=== PATIENT | male | born 1960 | race Caucasian/White ===

== ENCOUNTER 2021-09-04 20:41 | Inpatient (IN) ==
[2021-09-04 22:27] LABS: PCO2 Arterial 71 mmHg (35-45); PO2 Arterial 83 mmHg (80-100)
[2021-09-04 22:42] LABS: ABS Basophils 0.1 10^3/ul (0-0.2); ABS Eosinophils 0.1 10^3/ul (0-0.6); ABS Lymphocytes 4.5 10^3/ul (1.0-4.8); ABS Neutrophils 10.6 10^3/ul (1.5-7.7); Eosinophil % 0.9 %; Hematocrit 41 % (42-52); Hemoglobin 13.3 g/dL (14.0-18.0); Lymphocyte % 27.6 %; Mean Corpuscular HGB Conc 32 g/dL (31-36); Mean Corpuscular Hemoglobin 28 pg (27-31); Mean Corpuscular Volume 87 fL (80-94); Mean Platelet Volume 7.6 fL (7.4-10.4); Nucleated Red Blood Cells % 0.1; Platelet Count 366 10^3/uL (150-450); Red Blood Count 4.74 10^6 /uL (4.18-5.48); Red Cell Distribution Width 15 % (10-15); White Blood Count 16.3 10^3/uL (3.5-10.8)
[2021-09-04 22:45] LABS: Urine Appearance Clear; Urine Bilirubin Negative (Negative); Urine Blood Negative (Negative); Urine Color Yellow; Urine Glucose Negative (Negative); Urine Ketones Trace (Negative); Urine Nitrite Negative (Negative); Urine Protein 1+(30 mg/dL) (Negative); Urine Specific Gravity 1.021 (1.002-1.030); Urine Urobilinogen Negative (Negative)
[2021-09-04 22:48] LABS: Rapid COVID-19 Molecular Undetected (Undetected)
[2021-09-04 22:50] LABS: Urine Bacteria Absent (Absent); Urine Red Blood Cell 3+(>10/hpf) (Absent); Urine White Blood Cell Trace(0-5/hpf) (Absent)
[2021-09-04 23:00] LABS: Albumin 4.2 g/dL (3.2-5.2); Albumin/Globulin Ratio 1.4 (1-3); Calcium 9.8 mg/dL (8.6-10.3); Globulin 2.9 g/dL (2-4); Potassium 4.1 mmol/L (3.5-5.0); Total Bilirubin 0.4 mg/dL (0.2-1.0); Total Protein 7.1 g/dL (6.4-8.9)
[2021-09-04 23:02] LABS: Troponin I 0.01 ng/mL (<0.03)
[2021-09-05] MEDS ORDERED: NS 0.9% 1000 ml BAG 1,000 ML IV SCH (00:30)
[2021-09-05] MEDS ORDERED: Miconazole TOPICAL CREAM 2% 30 GM TOPICAL PRN (01:40)
[2021-09-05] MEDS: Heparin 5000 UNITS/ML 1 mL VIAL SUBCUT SCH ×3 (10:06→22:34)
[2021-09-05] MEDS: Senna TAB 8.6 mg TAB PO SCH ×2 (10:08→20:36)
[2021-09-05] MEDS: Vitamin THERAPEUTIC TAB PO SCH (10:08)
[2021-09-05 11:34] LABS: ABS Basophils 0.1 10^3/ul (0-0.2); ABS Eosinophils 0.1 10^3/ul (0-0.6); ABS Lymphocytes 3.9 10^3/ul (1.0-4.8); ABS Monocytes 1.2 10^3/ul (0-0.8); ABS Neutrophils 8.4 10^3/ul (1.5-7.7); Eosinophil % 1.1 %; Hematocrit 38 % (42-52); Hemoglobin 12.1 g/dL (14.0-18.0); Lymphocyte % 28.5 %; Mean Corpuscular HGB Conc 32 g/dL (31-36); Mean Corpuscular Hemoglobin 28 pg (27-31); Mean Corpuscular Volume 87 fL (80-94); Mean Platelet Volume 7.1 fL (7.4-10.4); Platelet Count 339 10^3/uL (150-450); Red Blood Count 4.32 10^6 /uL (4.18-5.48); Red Cell Distribution Width 16 % (10-15); White Blood Count 13.7 10^3/uL (3.5-10.8)
[2021-09-05] MEDS: Collagenase 250 units/gm OINT 1 tube TOPICAL SCH (15:28)
[2021-09-05] MEDS: Dakins Solution 0.125% (1/4 STRENGTH) 473 ML BTL TOPICAL SCH (15:28)
[2021-09-05] MEDS: Latanoprost 0.005% 2.5 ml BTL BOTH EYES SCH (16:33)
[2021-09-05] MEDS ORDERED: Furosemide 40 mg/4 ml IV VIAL IV SLOW PU ONE (18:40)
[2021-09-05] MEDS ORDERED: Furosemide 40 mg/4 ml IV VIAL ONE (18:46)
[2021-09-06] MEDS: Dakins Solution 0.125% (1/4 STRENGTH) 473 ML BTL TOPICAL SCH ×2 (00:13→08:13)
[2021-09-06] MEDS: cefTRIAXone 1 gm/50 mL NS BAG 1 GM/50 ML BAG IVPB SCH (01:17)
[2021-09-06] MEDS: Heparin 5000 UNITS/ML 1 mL VIAL SUBCUT SCH ×2 (05:39→14:51)
[2021-09-06 07:44] LABS: ABS Basophils 0.1 10^3/ul (0-0.2); ABS Eosinophils 0.1 10^3/ul (0-0.6); ABS Lymphocytes 3.1 10^3/ul (1.0-4.8); ABS Neutrophils 5.3 10^3/ul (1.5-7.7); Eosinophil % 0.9 %; Hematocrit 36 % (42-52); Hemoglobin 11.8 g/dL (14.0-18.0); Lymphocyte % 32.3 %; Mean Corpuscular HGB Conc 32 g/dL (31-36); Mean Corpuscular Hemoglobin 28 pg (27-31); Mean Corpuscular Volume 87 fL (80-94); Mean Platelet Volume 7.5 fL (7.4-10.4); Platelet Count 275 10^3/uL (150-450); Red Blood Count 4.16 10^6 /uL (4.18-5.48); Red Cell Distribution Width 15 % (10-15); White Blood Count 9.5 10^3/uL (3.5-10.8)
[2021-09-06] MEDS: Senna TAB 8.6 mg TAB PO SCH (08:13)
[2021-09-06] MEDS: Vitamin THERAPEUTIC TAB PO SCH (08:14)
[2021-09-06] MEDS: Collagenase 250 units/gm OINT 1 tube TOPICAL SCH (14:52)
[2021-09-06] MEDS ORDERED: Furosemide 20 mg/2 ml IV VIAL IV SLOW PU ONE (16:28)
[2021-09-06] MEDS: Latanoprost 0.005% 2.5 ml BTL BOTH EYES SCH (23:39)
[2021-09-07] MEDS: Dakins Solution 0.125% (1/4 STRENGTH) 473 ML BTL TOPICAL SCH ×3 (00:06→20:57)
[2021-09-07] MEDS: Senna TAB 8.6 mg TAB PO SCH ×3 (00:07→20:59)
[2021-09-07] MEDS: Heparin 5000 UNITS/ML 1 mL VIAL SUBCUT SCH ×4 (00:19→21:00)
[2021-09-07] MEDS: cefTRIAXone 1 gm/50 mL NS BAG 1 GM/50 ML BAG IVPB SCH (01:18)
[2021-09-07 06:43] LABS: ABS Basophils 0.1 10^3/ul (0-0.2); ABS Eosinophils 0.1 10^3/ul (0-0.6); ABS Lymphocytes 2.9 10^3/ul (1.0-4.8); ABS Neutrophils 4.6 10^3/ul (1.5-7.7); Eosinophil % 0.8 %; Hematocrit 35 % (42-52); Hemoglobin 11.4 g/dL (14.0-18.0); Lymphocyte % 33.9 %; Mean Corpuscular HGB Conc 33 g/dL (31-36); Mean Corpuscular Hemoglobin 28 pg (27-31); Mean Corpuscular Volume 87 fL (80-94); Mean Platelet Volume 7.6 fL (7.4-10.4); Platelet Count 238 10^3/uL (150-450); Red Blood Count 4.02 10^6 /uL (4.18-5.48); Red Cell Distribution Width 15 % (10-15); White Blood Count 8.7 10^3/uL (3.5-10.8)
[2021-09-07 07:11] LABS: Calcium 9.6 mg/dL (8.6-10.3); Potassium 3.4 mmol/L (3.5-5.0)
[2021-09-07] MEDS: Vitamin THERAPEUTIC TAB PO SCH (10:09)
[2021-09-07] MEDS ORDERED: Potassium Chlor 20 meq TAB.ER PO ONE (14:00)
[2021-09-07] MEDS: Collagenase 250 units/gm OINT 1 tube TOPICAL SCH (14:14)
[2021-09-07] MEDS: Polyethylene Glycol 3350 17 GM PACKET PO PRN (14:37)
[2021-09-07] MEDS: Latanoprost 0.005% 2.5 ml BTL BOTH EYES SCH (18:42)
[2021-09-07] MEDS: Magnesium Hydroxide LIQ 30 ML UDC PO PRN (20:59)
[2021-09-08] MEDS: cefTRIAXone 1 gm/50 mL NS BAG 1 GM/50 ML BAG IVPB SCH (01:10)
[2021-09-08] MEDS: Heparin 5000 UNITS/ML 1 mL VIAL SUBCUT SCH ×3 (04:59→20:16)
[2021-09-08] MEDS: Vitamin THERAPEUTIC TAB PO SCH (08:17)
[2021-09-08] MEDS: Senna TAB 8.6 mg TAB PO SCH ×2 (08:17→20:16)
[2021-09-08] MEDS: Polyethylene Glycol 3350 17 GM PACKET PO PRN (08:23)
[2021-09-08] MEDS: Dakins Solution 0.125% (1/4 STRENGTH) 473 ML BTL TOPICAL SCH ×2 (14:26→20:15)
[2021-09-08] MEDS: Collagenase 250 units/gm OINT 1 tube TOPICAL SCH (14:26)
[2021-09-08] MEDS: Cefepime 2 GM in Dextrose 2 GM/50 ML BAG IV SCH (16:45)
[2021-09-08] MEDS: Latanoprost 0.005% 2.5 ml BTL BOTH EYES SCH (16:45)
[2021-09-09] MEDS: Cefepime 2 GM in Dextrose 2 GM/50 ML BAG IV SCH ×2 (03:37→15:46)
[2021-09-09] MEDS: Heparin 5000 UNITS/ML 1 mL VIAL SUBCUT SCH ×3 (05:19→20:30)
[2021-09-09 06:00] LABS: Calcium 9.1 mg/dL (8.6-10.3); Magnesium 1.9 mg/dL (1.9-2.7); Potassium 4.1 mmol/L (3.5-5.0)
[2021-09-09 07:35] LABS: ABS Basophils 0.1 10^3/ul (0-0.2); ABS Eosinophils 0.3 10^3/ul (0-0.6); ABS Lymphocytes 2.6 10^3/ul (1.0-4.8); ABS Monocytes 0.8 10^3/ul (0-0.8); Eosinophil % 4.3 %; Hematocrit 33 % (42-52); Hemoglobin 10.9 g/dL (14.0-18.0); Lymphocyte % 38.7 %; Mean Corpuscular HGB Conc 33 g/dL (31-36); Mean Corpuscular Hemoglobin 29 pg (27-31); Mean Corpuscular Volume 86 fL (80-94); Mean Platelet Volume 7.3 fL (7.4-10.4); Platelet Count 221 10^3/uL (150-450); Red Blood Count 3.83 10^6 /uL (4.18-5.48); Red Cell Distribution Width 15 % (10-15); White Blood Count 6.8 10^3/uL (3.5-10.8)
[2021-09-09] MEDS: Vitamin THERAPEUTIC TAB PO SCH (09:51)
[2021-09-09] MEDS: Senna TAB 8.6 mg TAB PO SCH ×2 (09:52→20:29)
[2021-09-09] MEDS: Collagenase 250 units/gm OINT 1 tube TOPICAL SCH (09:57)
[2021-09-09] MEDS: Dakins Solution 0.125% (1/4 STRENGTH) 473 ML BTL TOPICAL SCH ×2 (09:57→21:59)
[2021-09-09] MEDS: Latanoprost 0.005% 2.5 ml BTL BOTH EYES SCH (18:03)
[2021-09-10] MEDS: Cefepime 2 GM in Dextrose 2 GM/50 ML BAG IV SCH ×2 (03:06→17:08)
[2021-09-10] MEDS: Heparin 5000 UNITS/ML 1 mL VIAL SUBCUT SCH ×4 (05:06→22:24)
[2021-09-10 06:23] LABS: ABS Eosinophils 0.4 10^3/ul (0-0.6); ABS Lymphocytes 3.9 10^3/ul (1.0-4.8); ABS Monocytes 0.9 10^3/ul (0-0.8); Eosinophil % 5.2 %; Hematocrit 35 % (42-52); Hemoglobin 10.9 g/dL (14.0-18.0); Lymphocyte % 47.2 %; Mean Corpuscular HGB Conc 32 g/dL (31-36); Mean Corpuscular Hemoglobin 28 pg (27-31); Mean Corpuscular Volume 87 fL (80-94); Mean Platelet Volume 7.7 fL (7.4-10.4); Nucleated Red Blood Cells % 0.1; Platelet Count 219 10^3/uL (150-450); Red Blood Count 3.96 10^6 /uL (4.18-5.48); Red Cell Distribution Width 15 % (10-15); White Blood Count 8.3 10^3/uL (3.5-10.8)
[2021-09-10 06:46] LABS: Calcium 9.6 mg/dL (8.6-10.3); Potassium 3.9 mmol/L (3.5-5.0)
[2021-09-10] MEDS: Polyethylene Glycol 3350 17 GM PACKET PO PRN (08:53)
[2021-09-10] MEDS: Senna TAB 8.6 mg TAB PO SCH ×2 (08:53→22:22)
[2021-09-10] MEDS: Magnesium Hydroxide LIQ 30 ML UDC PO PRN (08:53)
[2021-09-10] MEDS: Vitamin THERAPEUTIC TAB PO SCH (08:54)
[2021-09-10] MEDS: Collagenase 250 units/gm OINT 1 tube TOPICAL SCH (14:59)
[2021-09-10] MEDS: Dakins Solution 0.125% (1/4 STRENGTH) 473 ML BTL TOPICAL SCH ×2 (14:59→22:21)
[2021-09-10] MEDS: Latanoprost 0.005% 2.5 ml BTL BOTH EYES SCH (17:09)
[2021-09-11] MEDS: Cefepime 2 GM in Dextrose 2 GM/50 ML BAG IV SCH ×2 (03:20→16:13)
[2021-09-11] MEDS: Heparin 5000 UNITS/ML 1 mL VIAL SUBCUT SCH ×3 (05:12→20:28)
[2021-09-11 05:48] LABS: ABS Basophils 0.1 10^3/ul (0-0.2); ABS Eosinophils 0.4 10^3/ul (0-0.6); ABS Monocytes 0.9 10^3/ul (0-0.8); ABS Neutrophils 4.6 10^3/ul (1.5-7.7); Eosinophil % 3.9 %; Hematocrit 33 % (42-52); Hemoglobin 10.7 g/dL (14.0-18.0); Lymphocyte % 39.9 %; Mean Corpuscular HGB Conc 33 g/dL (31-36); Mean Corpuscular Hemoglobin 29 pg (27-31); Mean Corpuscular Volume 87 fL (80-94); Mean Platelet Volume 7.7 fL (7.4-10.4); Platelet Count 229 10^3/uL (150-450); Red Blood Count 3.76 10^6 /uL (4.18-5.48); Red Cell Distribution Width 16 % (10-15)
[2021-09-11 06:02] LABS: Calcium 9.3 mg/dL (8.6-10.3); Potassium 3.9 mmol/L (3.5-5.0)
[2021-09-11] MEDS: Senna TAB 8.6 mg TAB PO SCH ×2 (08:19→20:28)
[2021-09-11] MEDS: Collagenase 250 units/gm OINT 1 tube TOPICAL SCH (08:24)
[2021-09-11] MEDS: Vitamin THERAPEUTIC TAB PO SCH (08:24)
[2021-09-11] MEDS: Dakins Solution 0.125% (1/4 STRENGTH) 473 ML BTL TOPICAL SCH ×2 (11:02→20:30)
[2021-09-11 13:20] LABS: C Reactive Protein 40.22 mg/L (<8.01)
[2021-09-11] MEDS: Latanoprost 0.005% 2.5 ml BTL BOTH EYES SCH (18:06)
[2021-09-12] MEDS: Cefepime 2 GM in Dextrose 2 GM/50 ML BAG IV SCH ×2 (04:08→15:52)
[2021-09-12] MEDS: Heparin 5000 UNITS/ML 1 mL VIAL SUBCUT SCH ×3 (05:02→21:08)
[2021-09-12 08:14] LABS: Hematocrit 32 % (42-52); Hemoglobin 10.6 g/dL (14.0-18.0); Mean Corpuscular HGB Conc 33 g/dL (31-36); Mean Corpuscular Hemoglobin 29 pg (27-31); Mean Corpuscular Volume 86 fL (80-94); Mean Platelet Volume 7.5 fL (7.4-10.4); Platelet Count 263 10^3/uL (150-450); Red Blood Count 3.72 10^6 /uL (4.18-5.48); Red Cell Distribution Width 16 % (10-15); White Blood Count 9.4 10^3/uL (3.5-10.8)
[2021-09-12 08:30] LABS: Albumin 3.1 g/dL (3.2-5.2); Albumin/Globulin Ratio 1.1 (1-3); Calcium 9.4 mg/dL (8.6-10.3); Globulin 2.7 g/dL (2-4); Potassium 4.3 mmol/L (3.5-5.0); Total Bilirubin 0.3 mg/dL (0.2-1.0); Total Protein 5.8 g/dL (6.4-8.9)
[2021-09-12 08:38] LABS: ABS Basophils 0.1 10^3/ul (0-0.2); ABS Eosinophils 0.4 10^3/ul (0-0.6); ABS Lymphocytes 3.9 10^3/ul (1.0-4.8); ABS Monocytes 0.7 10^3/ul (0-0.8); ABS Neutrophils 4.3 10^3/ul (1.5-7.7); Eosinophil % 4.7 %; Lymphocyte % 41.1 %
[2021-09-12] MEDS: Senna TAB 8.6 mg TAB PO SCH ×2 (09:08→21:17)
[2021-09-12] MEDS: Vitamin THERAPEUTIC TAB PO SCH (09:08)
[2021-09-12] MEDS: Collagenase 250 units/gm OINT 1 tube TOPICAL SCH (09:16)
[2021-09-12] MEDS: Dakins Solution 0.125% (1/4 STRENGTH) 473 ML BTL TOPICAL SCH ×2 (09:16→21:17)
[2021-09-12] MEDS: Latanoprost 0.005% 2.5 ml BTL BOTH EYES SCH (16:37)
[2021-09-13] MEDS: Cefepime 2 GM in Dextrose 2 GM/50 ML BAG IV SCH ×2 (04:13→15:42)
[2021-09-13] MEDS: Heparin 5000 UNITS/ML 1 mL VIAL SUBCUT SCH ×3 (05:00→21:46)
[2021-09-13 08:06] LABS: Calcium 9.6 mg/dL (8.6-10.3); Magnesium 2.1 mg/dL (1.9-2.7); Potassium 4.2 mmol/L (3.5-5.0)
[2021-09-13] MEDS: Vitamin THERAPEUTIC TAB PO SCH (09:04)
[2021-09-13] MEDS: Senna TAB 8.6 mg TAB PO SCH ×2 (09:04→21:46)
[2021-09-13] MEDS: Dakins Solution 0.125% (1/4 STRENGTH) 473 ML BTL TOPICAL SCH ×2 (10:24→22:27)
[2021-09-13] MEDS: Collagenase 250 units/gm OINT 1 tube TOPICAL SCH (10:24)
[2021-09-13] MEDS ORDERED: COVID-19 VACCINE, MRNA(MODERNA) BOOSTER/PF 50 MCG/0.25 ML IM ONE (14:00)
[2021-09-13] MEDS: Latanoprost 0.005% 2.5 ml BTL BOTH EYES SCH (18:29)
[2021-09-14] MEDS: Cefepime 2 GM in Dextrose 2 GM/50 ML BAG IV SCH ×2 (03:45→17:19)
[2021-09-14] MEDS: Heparin 5000 UNITS/ML 1 mL VIAL SUBCUT SCH ×2 (06:08→13:54)
[2021-09-14 10:11] LABS: ABS Basophils 0.1 10^3/ul (0-0.2); ABS Eosinophils 0.5 10^3/ul (0-0.6); ABS Lymphocytes 4.5 10^3/ul (1.0-4.8); ABS Monocytes 0.9 10^3/ul (0-0.8); ABS Neutrophils 6.2 10^3/ul (1.5-7.7); Eosinophil % 4.1 %; Hematocrit 35 % (42-52); Hemoglobin 11.4 g/dL (14.0-18.0); Lymphocyte % 36.7 %; Mean Corpuscular HGB Conc 33 g/dL (31-36); Mean Corpuscular Hemoglobin 28 pg (27-31); Mean Corpuscular Volume 84 fL (80-94); Mean Platelet Volume 7.2 fL (7.4-10.4); Platelet Count 350 10^3/uL (150-450); Red Blood Count 4.15 10^6 /uL (4.18-5.48); Red Cell Distribution Width 16 % (10-15); White Blood Count 12.2 10^3/uL (3.5-10.8)
[2021-09-14 10:29] LABS: Calcium 9.7 mg/dL (8.6-10.3); Magnesium 2.1 mg/dL (1.9-2.7); Potassium 4.2 mmol/L (3.5-5.0)
[2021-09-14] MEDS: Collagenase 250 units/gm OINT 1 tube TOPICAL SCH (10:51)
[2021-09-14] MEDS: Dakins Solution 0.125% (1/4 STRENGTH) 473 ML BTL TOPICAL SCH ×2 (10:51→23:47)
[2021-09-14] MEDS: Vitamin THERAPEUTIC TAB PO SCH (10:52)
[2021-09-14] MEDS: Senna TAB 8.6 mg TAB PO SCH ×2 (10:52→21:14)
[2021-09-14] MEDS: Latanoprost 0.005% 2.5 ml BTL BOTH EYES SCH (17:24)
[2021-09-14] MEDS: Enoxaparin 40 MG/0.4 ML SYR SUBCUT SCH (21:14)
[2021-09-15] MEDS: Cefepime 2 GM in Dextrose 2 GM/50 ML BAG IV SCH ×2 (04:13→15:47)
[2021-09-15 06:03] LABS: ABS Basophils 0.1 10^3/ul (0-0.2); ABS Eosinophils 0.5 10^3/ul (0-0.6); ABS Lymphocytes 4.3 10^3/ul (1.0-4.8); ABS Neutrophils 5.8 10^3/ul (1.5-7.7); Eosinophil % 4.6 %; Hematocrit 34 % (42-52); Hemoglobin 10.8 g/dL (14.0-18.0); Lymphocyte % 36.7 %; Mean Corpuscular HGB Conc 32 g/dL (31-36); Mean Corpuscular Hemoglobin 27 pg (27-31); Mean Corpuscular Volume 85 fL (80-94); Mean Platelet Volume 7.3 fL (7.4-10.4); Platelet Count 341 10^3/uL (150-450); Red Blood Count 3.96 10^6 /uL (4.18-5.48); Red Cell Distribution Width 16 % (10-15); White Blood Count 11.7 10^3/uL (3.5-10.8)
[2021-09-15 06:21] LABS: Albumin 3.3 g/dL (3.2-5.2); Albumin/Globulin Ratio 1.3 (1-3); Calcium 9.6 mg/dL (8.6-10.3); Globulin 2.5 g/dL (2-4); Magnesium 2.1 mg/dL (1.9-2.7); Potassium 4.1 mmol/L (3.5-5.0); Total Bilirubin 0.4 mg/dL (0.2-1.0); Total Protein 5.8 g/dL (6.4-8.9)
[2021-09-15] MEDS: Dakins Solution 0.125% (1/4 STRENGTH) 473 ML BTL TOPICAL SCH ×2 (09:46→21:14)
[2021-09-15] MEDS: Vitamin THERAPEUTIC TAB PO SCH (09:46)
[2021-09-15] MEDS: Collagenase 250 units/gm OINT 1 tube TOPICAL SCH (09:46)
[2021-09-15] MEDS: Senna TAB 8.6 mg TAB PO SCH ×2 (09:46→21:13)
[2021-09-15 12:03] LABS: Rapid COVID-19 Molecular Undetected (Undetected)
[2021-09-15] MEDS: Enoxaparin 40 MG/0.4 ML SYR SUBCUT SCH (21:13)
[2021-09-15] MEDS: Latanoprost 0.005% 2.5 ml BTL BOTH EYES SCH (21:13)
[2021-09-16] MEDS: Cefepime 2 GM in Dextrose 2 GM/50 ML BAG IV SCH ×2 (04:05→17:27)
[2021-09-16] MEDS: Vitamin THERAPEUTIC TAB PO SCH (10:05)
[2021-09-16] MEDS: Senna TAB 8.6 mg TAB PO SCH ×2 (10:06→21:14)
[2021-09-16] MEDS: Collagenase 250 units/gm OINT 1 tube TOPICAL SCH (14:05)
[2021-09-16] MEDS: Dakins Solution 0.125% (1/4 STRENGTH) 473 ML BTL TOPICAL SCH ×2 (14:05→21:14)
[2021-09-16] MEDS ORDERED: fentaNYL 100 mcg/2 ml 50 MCG/ML VIAL IV PRN (15:21)
[2021-09-16] MEDS ORDERED: DiMENhydriNATE IV 50 mg/ml 1 ml VIAL IV PUSH PRN (15:21)
[2021-09-16] MEDS ORDERED: Naloxone 0.4 mg VIAL 0.4 mg/ml 1 ml VIAL IV PRN (15:21)
[2021-09-16] MEDS: Latanoprost 0.005% 2.5 ml BTL BOTH EYES SCH (17:41)
[2021-09-16] MEDS: Enoxaparin 40 MG/0.4 ML SYR SUBCUT SCH (21:14)
[2021-09-17] MEDS: Cefepime 2 GM in Dextrose 2 GM/50 ML BAG IV SCH ×2 (03:45→15:35)
[2021-09-17 07:08] LABS: ABS Basophils 0.1 10^3/ul (0-0.2); ABS Eosinophils 0.5 10^3/ul (0-0.6); ABS Lymphocytes 4.6 10^3/ul (1.0-4.8); ABS Monocytes 0.8 10^3/ul (0-0.8); Eosinophil % 4.1 %; Hematocrit 35 % (42-52); Hemoglobin 11.2 g/dL (14.0-18.0); Lymphocyte % 35.2 %; Mean Corpuscular HGB Conc 32 g/dL (31-36); Mean Corpuscular Hemoglobin 28 pg (27-31); Mean Corpuscular Volume 86 fL (80-94); Mean Platelet Volume 6.9 fL (7.4-10.4); Platelet Count 345 10^3/uL (150-450); Red Blood Count 4.04 10^6 /uL (4.18-5.48); Red Cell Distribution Width 16 % (10-15); White Blood Count 13.1 10^3/uL (3.5-10.8)
[2021-09-17 07:27] LABS: Calcium 9.6 mg/dL (8.6-10.3); Potassium 3.8 mmol/L (3.5-5.0)
[2021-09-17] MEDS: Vitamin THERAPEUTIC TAB PO SCH (08:32)
[2021-09-17] MEDS: Senna TAB 8.6 mg TAB PO SCH ×2 (11:03→21:23)
[2021-09-17] MEDS ORDERED: Enoxaparin 40 MG/0.4 ML SYR SUBCUT ONE (12:23)
[2021-09-17] MEDS: Latanoprost 0.005% 2.5 ml BTL BOTH EYES SCH (18:15)
[2021-09-17] MEDS: Dakins Solution 0.125% (1/4 STRENGTH) 473 ML BTL TOPICAL SCH ×2 (18:18→21:23)
[2021-09-17] MEDS: Collagenase 250 units/gm OINT 1 tube TOPICAL SCH (18:18)
[2021-09-17] MEDS ORDERED: Gadoteridol (CONTRAST) 279.3 MG/ML 10 ML IV ONE (19:17)
[2021-09-18] MEDS: Cefepime 2 GM in Dextrose 2 GM/50 ML BAG IV SCH ×2 (04:32→15:50)
[2021-09-18 06:54] LABS: ABS Basophils 0.1 10^3/ul (0-0.2); ABS Eosinophils 0.4 10^3/ul (0-0.6); ABS Lymphocytes 4.6 10^3/ul (1.0-4.8); ABS Monocytes 0.9 10^3/ul (0-0.8); ABS Neutrophils 6.6 10^3/ul (1.5-7.7); Eosinophil % 3.5 %; Hematocrit 34 % (42-52); Lymphocyte % 36.7 %; Mean Corpuscular HGB Conc 33 g/dL (31-36); Mean Corpuscular Hemoglobin 28 pg (27-31); Mean Corpuscular Volume 86 fL (80-94); Mean Platelet Volume 7.2 fL (7.4-10.4); Platelet Count 374 10^3/uL (150-450); Red Blood Count 3.95 10^6 /uL (4.18-5.48); Red Cell Distribution Width 16 % (10-15); White Blood Count 12.5 10^3/uL (3.5-10.8)
[2021-09-18 07:04] LABS: INR 1.16 (0.86-1.15)
[2021-09-18 07:10] LABS: Calcium 9.6 mg/dL (8.6-10.3); Potassium 3.8 mmol/L (3.5-5.0)
[2021-09-18] MEDS ORDERED: fentaNYL 100 mcg/2 ml 50 MCG/ML VIAL IV PRN (08:21)
[2021-09-18] MEDS ORDERED: Ondansetron 4 mg VIAL 2 MG/ML 2 ml VIAL IV PRN (08:21)
[2021-09-18] MEDS ORDERED: Naloxone 0.4 mg VIAL 0.4 mg/ml 1 ml VIAL IV PRN (08:21)
[2021-09-18] MEDS ORDERED: Succinylcholine 200 mg VIAL 20 mg/ml 10 ml VIAL (200 mg) ONE (09:03)
[2021-09-18] MEDS ORDERED: Propofol 10 MG/ML 20 ML BTL ONE (09:03)
[2021-09-18] MEDS ORDERED: Rocuronium 50 mg VIAL 10 mg/ml 5 ml VIAL (50 mg) ONE (09:03)
[2021-09-18] MEDS ORDERED: Bupivacaine 0.5% 50 ML MDV VIAL ONE (09:45)
[2021-09-18] MEDS ORDERED: EPHEDrine (Pressors) 50 MG/ML VIAL ONE (10:19)
[2021-09-18] MEDS: Dakins Solution 0.125% (1/4 STRENGTH) 473 ML BTL TOPICAL SCH ×2 (10:35→20:59)
[2021-09-18] MEDS: Collagenase 250 units/gm OINT 1 tube TOPICAL SCH (12:30)
[2021-09-18] MEDS: Senna TAB 8.6 mg TAB PO SCH ×2 (12:30→20:54)
[2021-09-18] MEDS: Vitamin THERAPEUTIC TAB PO SCH (12:30)
[2021-09-18] MEDS: Latanoprost 0.005% 2.5 ml BTL BOTH EYES SCH (17:10)
[2021-09-19] MEDS: Cefepime 2 GM in Dextrose 2 GM/50 ML BAG IV SCH ×2 (05:37→15:55)
[2021-09-19] MEDS: Vitamin THERAPEUTIC TAB PO SCH (09:30)
[2021-09-19] MEDS: Senna TAB 8.6 mg TAB PO SCH ×2 (09:30→23:00)
[2021-09-19] MEDS: Collagenase 250 units/gm OINT 1 tube TOPICAL SCH (10:50)
[2021-09-19] MEDS: Dakins Solution 0.125% (1/4 STRENGTH) 473 ML BTL TOPICAL SCH ×2 (10:50→22:32)
[2021-09-19] MEDS: Latanoprost 0.005% 2.5 ml BTL BOTH EYES SCH (23:01)
[2021-09-20] MEDS: Cefepime 2 GM in Dextrose 2 GM/50 ML BAG IV SCH ×2 (04:53→16:55)
[2021-09-20 07:58] LABS: ABS Basophils 0.1 10^3/ul (0-0.2); ABS Eosinophils 0.4 10^3/ul (0-0.6); ABS Lymphocytes 3.7 10^3/ul (1.0-4.8); ABS Monocytes 0.9 10^3/ul (0-0.8); ABS Neutrophils 6.9 10^3/ul (1.5-7.7); Eosinophil % 3.5 %; Hematocrit 34 % (42-52); Mean Corpuscular HGB Conc 32 g/dL (31-36); Mean Corpuscular Hemoglobin 28 pg (27-31); Mean Corpuscular Volume 86 fL (80-94); Mean Platelet Volume 6.9 fL (7.4-10.4); Platelet Count 363 10^3/uL (150-450); Red Blood Count 3.99 10^6 /uL (4.18-5.48); Red Cell Distribution Width 16 % (10-15)
[2021-09-20] MEDS: Vitamin THERAPEUTIC TAB PO SCH (08:32)
[2021-09-20] MEDS: Senna TAB 8.6 mg TAB PO SCH ×2 (08:35→22:08)
[2021-09-20] MEDS: Collagenase 250 units/gm OINT 1 tube TOPICAL SCH (15:18)
[2021-09-20] MEDS: Latanoprost 0.005% 2.5 ml BTL BOTH EYES SCH (18:13)
[2021-09-21] MEDS: Cefepime 2 GM in Dextrose 2 GM/50 ML BAG IV SCH ×2 (04:29→16:38)
[2021-09-21] MEDS: Vitamin THERAPEUTIC TAB PO SCH (08:37)
[2021-09-21] MEDS: Senna TAB 8.6 mg TAB PO SCH ×2 (08:39→22:48)
[2021-09-21] MEDS: Collagenase 250 units/gm OINT 1 tube TOPICAL SCH (11:07)
[2021-09-21] MEDS: Enoxaparin 40 MG/0.4 ML SYR SUBCUT SCH (16:38)
[2021-09-21] MEDS: Latanoprost 0.005% 2.5 ml BTL BOTH EYES SCH (22:50)
[2021-09-22] MEDS: Nystatin TOP POWDER 15 GM BTL TOPICAL SCH ×4 (02:18→21:27)
[2021-09-22] MEDS: Cefepime 2 GM in Dextrose 2 GM/50 ML BAG IV SCH ×2 (04:15→15:20)
[2021-09-22 06:20] LABS: Hematocrit 32 % (42-52); Hemoglobin 10.7 g/dL (14.0-18.0); Mean Corpuscular HGB Conc 33 g/dL (31-36); Mean Corpuscular Hemoglobin 29 pg (27-31); Mean Corpuscular Volume 86 fL (80-94); Mean Platelet Volume 7.2 fL (7.4-10.4); Platelet Count 381 10^3/uL (150-450); Red Blood Count 3.75 10^6 /uL (4.18-5.48); Red Cell Distribution Width 16 % (10-15); White Blood Count 14.5 10^3/uL (3.5-10.8)
[2021-09-22 06:42] LABS: Calcium 9.4 mg/dL (8.6-10.3); Potassium 3.9 mmol/L (3.5-5.0); eGFR CKD-EPI 120.7 (>60)
[2021-09-22 06:53] LABS: ABS Basophils 0.1 10^3/ul (0-0.2); ABS Eosinophils 0.4 10^3/ul (0-0.6); ABS Lymphocytes 4.4 10^3/ul (1.0-4.8); ABS Neutrophils 8.3 10^3/ul (1.5-7.7); Eosinophil % 3.1 %; Lymphocyte % 30.9 %
[2021-09-22] MEDS: Senna TAB 8.6 mg TAB PO SCH ×2 (09:44→20:52)
[2021-09-22] MEDS: Vitamin THERAPEUTIC TAB PO SCH (09:44)
[2021-09-22] MEDS: Collagenase 250 units/gm OINT 1 tube TOPICAL SCH (10:39)
[2021-09-22] MEDS: Enoxaparin 40 MG/0.4 ML SYR SUBCUT SCH (15:20)
[2021-09-22] MEDS: Latanoprost 0.005% 2.5 ml BTL BOTH EYES SCH (17:32)
[2021-09-23] MEDS: Cefepime 2 GM in Dextrose 2 GM/50 ML BAG IV SCH ×2 (03:34→15:40)
[2021-09-23] MEDS: Senna TAB 8.6 mg TAB PO SCH ×2 (10:06→20:53)
[2021-09-23] MEDS: Vitamin THERAPEUTIC TAB PO SCH (10:06)
[2021-09-23] MEDS: Nystatin TOP POWDER 15 GM BTL TOPICAL SCH ×3 (12:12→20:53)
[2021-09-23] MEDS: Enoxaparin 40 MG/0.4 ML SYR SUBCUT SCH (15:43)
[2021-09-23] MEDS: Latanoprost 0.005% 2.5 ml BTL BOTH EYES SCH (19:41)
[2021-09-24] MEDS: Cefepime 2 GM in Dextrose 2 GM/50 ML BAG IV SCH (03:56)
[2021-09-24 08:03] VITALS: BP 116/58
[2021-09-24] MEDS: Senna TAB 8.6 mg TAB PO SCH (08:52)
[2021-09-24] MEDS: Vitamin THERAPEUTIC TAB PO SCH (08:52)
[2021-09-24] MEDS: Nystatin TOP POWDER 15 GM BTL TOPICAL SCH (08:52)
== END 2021-09-24 09:30 | disposition swing bed (61) | DRG 320 ==
LOC: MED 20:41 → ED 20:41 → SUATTDRO 09-05 00:15 → MEDTELE 09-15 11:46
PROVIDERS: ADMIT Hospitalist; ATTEND Internal Medicine

== ENCOUNTER 2021-09-24 09:30 | Inpatient (IN) ==
[2021-09-24] MEDS: Enoxaparin 40 MG/0.4 ML SYR SUBCUT SCH (11:58)
[2021-09-24] MEDS ORDERED: Cefepime 2 GM in Dextrose 2 GM/50 ML BAG IV ONE (16:00)
[2021-09-24] MEDS: Latanoprost 0.005% 2.5 ml BTL BOTH EYES SCH (18:01)
[2021-09-24] MEDS: Senna TAB 8.6 mg TAB PO SCH (20:50)
[2021-09-24] MEDS: Nystatin TOP POWDER 15 GM BTL TOPICAL SCH (20:50)
[2021-09-25] MEDS: Senna TAB 8.6 mg TAB PO SCH ×2 (08:13→19:45)
[2021-09-25] MEDS: Vitamin THERAPEUTIC TAB PO SCH (08:13)
[2021-09-25] MEDS: Nystatin TOP POWDER 15 GM BTL TOPICAL SCH ×2 (08:14→19:45)
[2021-09-25] MEDS: Enoxaparin 40 MG/0.4 ML SYR SUBCUT SCH (13:06)
[2021-09-25] MEDS: Latanoprost 0.005% 2.5 ml BTL BOTH EYES SCH (17:38)
[2021-09-26] MEDS: Nystatin TOP POWDER 15 GM BTL TOPICAL SCH ×2 (07:28→20:10)
[2021-09-26] MEDS: Vitamin THERAPEUTIC TAB PO SCH (07:28)
[2021-09-26] MEDS: Senna TAB 8.6 mg TAB PO SCH ×2 (07:29→20:10)
[2021-09-26] MEDS: Enoxaparin 40 MG/0.4 ML SYR SUBCUT SCH (11:31)
[2021-09-26] MEDS: Latanoprost 0.005% 2.5 ml BTL BOTH EYES SCH (17:43)
[2021-09-27] MEDS: Senna TAB 8.6 mg TAB PO SCH ×2 (08:40→21:28)
[2021-09-27] MEDS: Vitamin THERAPEUTIC TAB PO SCH (08:40)
[2021-09-27] MEDS: Nystatin TOP POWDER 15 GM BTL TOPICAL SCH ×2 (08:42→21:29)
[2021-09-27] MEDS: Enoxaparin 40 MG/0.4 ML SYR SUBCUT SCH (10:37)
[2021-09-27] MEDS: Latanoprost 0.005% 2.5 ml BTL BOTH EYES SCH (19:06)
[2021-09-28] MEDS: Senna TAB 8.6 mg TAB PO SCH ×2 (09:58→21:45)
[2021-09-28] MEDS: Enoxaparin 40 MG/0.4 ML SYR SUBCUT SCH (09:58)
[2021-09-28] MEDS: Vitamin THERAPEUTIC TAB PO SCH (09:59)
[2021-09-28] MEDS: Nystatin TOP POWDER 15 GM BTL TOPICAL SCH ×2 (14:13→21:44)
[2021-09-28] MEDS: Latanoprost 0.005% 2.5 ml BTL BOTH EYES SCH (18:15)
[2021-09-29] MEDS: Enoxaparin 40 MG/0.4 ML SYR SUBCUT SCH (09:44)
[2021-09-29] MEDS: Senna TAB 8.6 mg TAB PO SCH ×2 (09:46→22:18)
[2021-09-29] MEDS: Vitamin THERAPEUTIC TAB PO SCH (09:46)
[2021-09-29] MEDS: Nystatin TOP POWDER 15 GM BTL TOPICAL SCH ×2 (09:48→22:18)
[2021-09-30] MEDS: Latanoprost 0.005% 2.5 ml BTL BOTH EYES SCH ×2 (01:36→21:50)
[2021-09-30 06:10] LABS: Hematocrit 34 % (42-52); Hemoglobin 10.9 g/dL (14.0-18.0); Mean Platelet Volume 6.7 fL (7.4-10.4); Platelet Count 399 10^3/uL (150-450)
[2021-09-30 06:30] LABS: eGFR CKD-EPI 120.7 (>60)
[2021-09-30] MEDS: Senna TAB 8.6 mg TAB PO SCH ×2 (10:50→21:50)
[2021-09-30] MEDS: Enoxaparin 40 MG/0.4 ML SYR SUBCUT SCH (10:50)
[2021-09-30] MEDS: Vitamin THERAPEUTIC TAB PO SCH (10:51)
[2021-09-30] MEDS: Nystatin TOP POWDER 15 GM BTL TOPICAL SCH ×2 (10:54→21:51)
[2021-10-01] MEDS: Vitamin THERAPEUTIC TAB PO SCH (10:28)
[2021-10-01] MEDS: Senna TAB 8.6 mg TAB PO SCH ×2 (10:28→20:52)
[2021-10-01] MEDS: Enoxaparin 40 MG/0.4 ML SYR SUBCUT SCH (10:29)
[2021-10-01] MEDS: Nystatin TOP POWDER 15 GM BTL TOPICAL SCH ×2 (10:38→20:51)
[2021-10-01] MEDS: Latanoprost 0.005% 2.5 ml BTL BOTH EYES SCH (20:51)
[2021-10-02] MEDS: Polyethylene Glycol 3350 17 GM PACKET PO PRN (09:35)
[2021-10-02] MEDS: Vitamin THERAPEUTIC TAB PO SCH (09:36)
[2021-10-02] MEDS: Senna TAB 8.6 mg TAB PO SCH ×2 (09:37→20:49)
[2021-10-02] MEDS: Enoxaparin 40 MG/0.4 ML SYR SUBCUT SCH (09:38)
[2021-10-02] MEDS: Nystatin TOP POWDER 15 GM BTL TOPICAL SCH ×2 (15:25→20:50)
[2021-10-02] MEDS: Latanoprost 0.005% 2.5 ml BTL BOTH EYES SCH (17:58)
[2021-10-03] MEDS: Vitamin THERAPEUTIC TAB PO SCH (08:13)
[2021-10-03] MEDS: Senna TAB 8.6 mg TAB PO SCH ×2 (08:22→20:38)
[2021-10-03] MEDS: Enoxaparin 40 MG/0.4 ML SYR SUBCUT SCH (13:31)
[2021-10-03] MEDS: Nystatin TOP POWDER 15 GM BTL TOPICAL SCH ×2 (15:16→20:38)
[2021-10-03] MEDS: Latanoprost 0.005% 2.5 ml BTL BOTH EYES SCH (16:50)
[2021-10-04] MEDS: Vitamin THERAPEUTIC TAB PO SCH (08:47)
[2021-10-04] MEDS: Senna TAB 8.6 mg TAB PO SCH ×2 (08:48→20:28)
[2021-10-04] MEDS: Nystatin TOP POWDER 15 GM BTL TOPICAL SCH ×2 (10:35→20:29)
[2021-10-04] MEDS: Enoxaparin 40 MG/0.4 ML SYR SUBCUT SCH (10:35)
[2021-10-04] MEDS: Latanoprost 0.005% 2.5 ml BTL BOTH EYES SCH (17:08)
[2021-10-05] MEDS: Enoxaparin 40 MG/0.4 ML SYR SUBCUT SCH (12:26)
[2021-10-05] MEDS: Vitamin THERAPEUTIC TAB PO SCH (12:28)
[2021-10-05] MEDS: Senna TAB 8.6 mg TAB PO SCH ×2 (12:28→20:49)
[2021-10-05] MEDS: Nystatin TOP POWDER 15 GM BTL TOPICAL SCH ×2 (12:28→20:48)
[2021-10-05] MEDS: Latanoprost 0.005% 2.5 ml BTL BOTH EYES SCH (18:08)
[2021-10-06] MEDS: Senna TAB 8.6 mg TAB PO SCH ×2 (09:36→22:01)
[2021-10-06] MEDS: Vitamin THERAPEUTIC TAB PO SCH (09:37)
[2021-10-06] MEDS: Polyethylene Glycol 3350 17 GM PACKET PO PRN (09:37)
[2021-10-06] MEDS: Enoxaparin 40 MG/0.4 ML SYR SUBCUT SCH (09:38)
[2021-10-06] MEDS: Nystatin TOP POWDER 15 GM BTL TOPICAL SCH ×2 (12:38→22:06)
[2021-10-06] MEDS: Latanoprost 0.005% 2.5 ml BTL BOTH EYES SCH (17:51)
[2021-10-07] MEDS: Enoxaparin 40 MG/0.4 ML SYR SUBCUT SCH (09:27)
[2021-10-07] MEDS: Vitamin THERAPEUTIC TAB PO SCH (09:28)
[2021-10-07] MEDS: Senna TAB 8.6 mg TAB PO SCH ×2 (10:08→21:52)
[2021-10-07] MEDS: Nystatin TOP POWDER 15 GM BTL TOPICAL SCH (13:11)
[2021-10-07] MEDS: Latanoprost 0.005% 2.5 ml BTL BOTH EYES SCH (17:50)
[2021-10-08 09:26] LABS: Hematocrit 36 % (42-52); Hemoglobin 11.6 g/dL (14.0-18.0); Mean Corpuscular HGB Conc 32 g/dL (31-36); Mean Corpuscular Hemoglobin 27 pg (27-31); Mean Corpuscular Volume 85 fL (80-94); Mean Platelet Volume 7.1 fL (7.4-10.4); Platelet Count 392 10^3/uL (150-450); Red Cell Distribution Width 16 % (10-15); White Blood Count 13.5 10^3/uL (3.5-10.8)
[2021-10-08] MEDS: Enoxaparin 40 MG/0.4 ML SYR SUBCUT SCH (09:34)
[2021-10-08] MEDS: Senna TAB 8.6 mg TAB PO SCH ×2 (09:35→21:46)
[2021-10-08] MEDS: Vitamin THERAPEUTIC TAB PO SCH (09:36)
[2021-10-08 09:47] LABS: Calcium 9.7 mg/dL (8.6-10.3); Potassium 3.6 mmol/L (3.5-5.0); eGFR CKD-EPI 115.3 (>60)
[2021-10-08 10:31] LABS: ABS Basophils 0.1 10^3/ul (0-0.2); ABS Eosinophils 0.9 10^3/ul (0-0.6); ABS Lymphocytes 5.1 10^3/ul (1.0-4.8); ABS Monocytes 0.6 10^3/ul (0-0.8); ABS Neutrophils 6.8 10^3/ul (1.5-7.7); Eosinophil % 6.8 %; Lymphocyte % 37.7 %; Nucleated Red Blood Cells % 0.1
[2021-10-08] MEDS: Latanoprost 0.005% 2.5 ml BTL BOTH EYES SCH (17:09)
[2021-10-09] MEDS: Vitamin THERAPEUTIC TAB PO SCH (08:33)
[2021-10-09] MEDS: Senna TAB 8.6 mg TAB PO SCH ×2 (08:34→21:18)
[2021-10-09] MEDS: Enoxaparin 40 MG/0.4 ML SYR SUBCUT SCH (14:34)
[2021-10-09] MEDS: Latanoprost 0.005% 2.5 ml BTL BOTH EYES SCH (17:38)
[2021-10-10] MEDS: Senna TAB 8.6 mg TAB PO SCH ×2 (11:25→22:07)
[2021-10-10] MEDS: Vitamin THERAPEUTIC TAB PO SCH (11:25)
[2021-10-10] MEDS: Enoxaparin 40 MG/0.4 ML SYR SUBCUT SCH (11:28)
[2021-10-10] MEDS: Latanoprost 0.005% 2.5 ml BTL BOTH EYES SCH (17:29)
[2021-10-11] MEDS: Vitamin THERAPEUTIC TAB PO SCH (09:04)
[2021-10-11] MEDS: Enoxaparin 40 MG/0.4 ML SYR SUBCUT SCH (09:05)
[2021-10-11] MEDS: Senna TAB 8.6 mg TAB PO SCH ×2 (09:05→21:48)
[2021-10-11] MEDS: Nystatin TOP POWDER 15 GM BTL TOPICAL SCH ×3 (12:30→21:59)
[2021-10-11] MEDS: Latanoprost 0.005% 2.5 ml BTL BOTH EYES SCH (17:50)
[2021-10-12] MEDS: Vitamin THERAPEUTIC TAB PO SCH (09:07)
[2021-10-12] MEDS: Nystatin TOP POWDER 15 GM BTL TOPICAL SCH ×3 (09:08→20:57)
[2021-10-12] MEDS: Senna TAB 8.6 mg TAB PO SCH ×2 (09:08→20:57)
[2021-10-12] MEDS: Enoxaparin 40 MG/0.4 ML SYR SUBCUT SCH (11:35)
[2021-10-12] MEDS: Latanoprost 0.005% 2.5 ml BTL BOTH EYES SCH (17:16)
[2021-10-13] MEDS: Enoxaparin 40 MG/0.4 ML SYR SUBCUT SCH (09:09)
[2021-10-13] MEDS: Vitamin THERAPEUTIC TAB PO SCH (09:10)
[2021-10-13] MEDS: Senna TAB 8.6 mg TAB PO SCH ×2 (09:11→22:16)
[2021-10-13] MEDS: Nystatin TOP POWDER 15 GM BTL TOPICAL SCH ×3 (09:11→22:08)
[2021-10-13] MEDS: Latanoprost 0.005% 2.5 ml BTL BOTH EYES SCH (18:44)
[2021-10-14] MEDS: Senna TAB 8.6 mg TAB PO SCH ×2 (10:29→20:42)
[2021-10-14] MEDS: Vitamin THERAPEUTIC TAB PO SCH (10:29)
[2021-10-14] MEDS: Enoxaparin 40 MG/0.4 ML SYR SUBCUT SCH (10:30)
[2021-10-14] MEDS: Nystatin TOP POWDER 15 GM BTL TOPICAL SCH ×3 (10:31→20:42)
[2021-10-14] MEDS: Latanoprost 0.005% 2.5 ml BTL BOTH EYES SCH (18:23)
[2021-10-15] MEDS: Senna TAB 8.6 mg TAB PO SCH ×2 (09:24→19:57)
[2021-10-15] MEDS: Vitamin THERAPEUTIC TAB PO SCH (09:25)
[2021-10-15] MEDS: Enoxaparin 40 MG/0.4 ML SYR SUBCUT SCH (09:26)
[2021-10-15 12:36] LABS: ABS Basophils 0.1 10^3/ul (0-0.2); ABS Eosinophils 0.6 10^3/ul (0-0.6); ABS Lymphocytes 4.2 10^3/ul (1.0-4.8); ABS Monocytes 0.8 10^3/ul (0-0.8); ABS Neutrophils 6.7 10^3/ul (1.5-7.7); Hematocrit 36 % (42-52); Hemoglobin 11.6 g/dL (14.0-18.0); Lymphocyte % 33.6 %; Mean Corpuscular HGB Conc 32 g/dL (31-36); Mean Corpuscular Hemoglobin 27 pg (27-31); Mean Corpuscular Volume 85 fL (80-94); Mean Platelet Volume 7.3 fL (7.4-10.4); Platelet Count 366 10^3/uL (150-450); Red Blood Count 4.22 10^6 /uL (4.18-5.48); Red Cell Distribution Width 16 % (10-15); White Blood Count 12.3 10^3/uL (3.5-10.8)
[2021-10-15 12:57] LABS: Calcium 9.5 mg/dL (8.6-10.3); Magnesium 1.8 mg/dL (1.9-2.7); Potassium 4.1 mmol/L (3.5-5.0); eGFR CKD-EPI 119.9 (>60)
[2021-10-15] MEDS: Nystatin TOP POWDER 15 GM BTL TOPICAL SCH ×2 (14:50→19:56)
[2021-10-15] MEDS: Latanoprost 0.005% 2.5 ml BTL BOTH EYES SCH (17:49)
[2021-10-16] MEDS: Vitamin THERAPEUTIC TAB PO SCH (10:14)
[2021-10-16] MEDS: Enoxaparin 40 MG/0.4 ML SYR SUBCUT SCH (10:15)
[2021-10-16] MEDS: Senna TAB 8.6 mg TAB PO SCH ×2 (10:15→20:30)
[2021-10-16] MEDS: Polyethylene Glycol 3350 17 GM PACKET PO PRN (12:05)
[2021-10-16] MEDS: Nystatin TOP POWDER 15 GM BTL TOPICAL SCH ×3 (12:05→20:30)
[2021-10-16] MEDS: Latanoprost 0.005% 2.5 ml BTL BOTH EYES SCH (17:50)
[2021-10-17] MEDS: Nystatin TOP POWDER 15 GM BTL TOPICAL SCH ×3 (09:08→20:55)
[2021-10-17] MEDS: Senna TAB 8.6 mg TAB PO SCH ×2 (09:08→20:55)
[2021-10-17] MEDS: Vitamin THERAPEUTIC TAB PO SCH (09:08)
[2021-10-17] MEDS: Enoxaparin 40 MG/0.4 ML SYR SUBCUT SCH (11:53)
[2021-10-17] MEDS: Polyethylene Glycol 3350 17 GM PACKET PO PRN (11:54)
[2021-10-17] MEDS: Latanoprost 0.005% 2.5 ml BTL BOTH EYES SCH (18:32)
[2021-10-18] MEDS: Senna TAB 8.6 mg TAB PO SCH ×2 (09:00→21:03)
[2021-10-18] MEDS: Nystatin TOP POWDER 15 GM BTL TOPICAL SCH ×2 (09:00→14:30)
[2021-10-18] MEDS: Vitamin THERAPEUTIC TAB PO SCH (09:00)
[2021-10-18] MEDS: Enoxaparin 40 MG/0.4 ML SYR SUBCUT SCH (09:01)
[2021-10-18] MEDS: Latanoprost 0.005% 2.5 ml BTL BOTH EYES SCH (21:01)
[2021-10-19] MEDS: Nystatin TOP POWDER 15 GM BTL TOPICAL SCH ×4 (00:31→21:08)
[2021-10-19] MEDS: Vitamin THERAPEUTIC TAB PO SCH (08:42)
[2021-10-19] MEDS: Polyethylene Glycol 3350 17 GM PACKET PO PRN (08:42)
[2021-10-19] MEDS: Senna TAB 8.6 mg TAB PO SCH ×2 (08:43→21:08)
[2021-10-19] MEDS: Enoxaparin 40 MG/0.4 ML SYR SUBCUT SCH (10:28)
[2021-10-19] MEDS ORDERED: Magnesium Hydroxide LIQ 30 ML UDC PO PRN (13:34)
[2021-10-19] MEDS: Latanoprost 0.005% 2.5 ml BTL BOTH EYES SCH ×4 (17:34→21:08)
[2021-10-20] MEDS: Senna TAB 8.6 mg TAB PO SCH ×2 (10:11→21:36)
[2021-10-20] MEDS: Enoxaparin 40 MG/0.4 ML SYR SUBCUT SCH (10:13)
[2021-10-20] MEDS: Vitamin THERAPEUTIC TAB PO SCH (10:13)
[2021-10-20] MEDS: Polyethylene Glycol 3350 17 GM PACKET PO PRN (10:27)
[2021-10-20] MEDS: Nystatin TOP POWDER 15 GM BTL TOPICAL SCH ×3 (13:03→21:39)
[2021-10-20] MEDS: Latanoprost 0.005% 2.5 ml BTL BOTH EYES SCH (21:39)
[2021-10-21] MEDS: Enoxaparin 40 MG/0.4 ML SYR SUBCUT SCH (10:56)
[2021-10-21] MEDS: Vitamin THERAPEUTIC TAB PO SCH (10:57)
[2021-10-21] MEDS: Nystatin TOP POWDER 15 GM BTL TOPICAL SCH ×3 (10:57→21:21)
[2021-10-21] MEDS: Senna TAB 8.6 mg TAB PO SCH ×2 (10:57→21:20)
[2021-10-21] MEDS: Latanoprost 0.005% 2.5 ml BTL BOTH EYES SCH (21:21)
[2021-10-22] MEDS: Enoxaparin 40 MG/0.4 ML SYR SUBCUT SCH (11:15)
[2021-10-22] MEDS: Vitamin THERAPEUTIC TAB PO SCH (11:15)
[2021-10-22] MEDS: Senna TAB 8.6 mg TAB PO SCH ×2 (11:15→21:28)
[2021-10-22] MEDS: Nystatin TOP POWDER 15 GM BTL TOPICAL SCH ×3 (11:16→21:28)
[2021-10-22] MEDS: Latanoprost 0.005% 2.5 ml BTL BOTH EYES SCH (21:28)
[2021-10-23] MEDS: Polyethylene Glycol 3350 17 GM PACKET PO PRN (08:50)
[2021-10-23] MEDS: Vitamin THERAPEUTIC TAB PO SCH (08:53)
[2021-10-23] MEDS: Nystatin TOP POWDER 15 GM BTL TOPICAL SCH ×3 (09:48→21:22)
[2021-10-23] MEDS: Senna TAB 8.6 mg TAB PO SCH ×2 (09:48→21:22)
[2021-10-23] MEDS: Enoxaparin 40 MG/0.4 ML SYR SUBCUT SCH (10:53)
[2021-10-23] MEDS: Latanoprost 0.005% 2.5 ml BTL BOTH EYES SCH (21:21)
[2021-10-24] MEDS: Vitamin THERAPEUTIC TAB PO SCH (08:59)
[2021-10-24] MEDS: Senna TAB 8.6 mg TAB PO SCH ×2 (08:59→20:50)
[2021-10-24] MEDS: Enoxaparin 40 MG/0.4 ML SYR SUBCUT SCH (10:26)
[2021-10-24] MEDS: Nystatin TOP POWDER 15 GM BTL TOPICAL SCH ×2 (14:20→20:53)
[2021-10-24] MEDS: Latanoprost 0.005% 2.5 ml BTL BOTH EYES SCH (20:53)
[2021-10-25] MEDS: Senna TAB 8.6 mg TAB PO SCH ×2 (09:22→21:11)
[2021-10-25] MEDS: Polyethylene Glycol 3350 17 GM PACKET PO PRN (09:23)
[2021-10-25] MEDS: Vitamin THERAPEUTIC TAB PO SCH (09:23)
[2021-10-25] MEDS: Enoxaparin 40 MG/0.4 ML SYR SUBCUT SCH (09:23)
[2021-10-25] MEDS: Nystatin TOP POWDER 15 GM BTL TOPICAL SCH ×3 (09:26→21:12)
[2021-10-25] MEDS: Latanoprost 0.005% 2.5 ml BTL BOTH EYES SCH (21:12)
[2021-10-26] MEDS: Senna TAB 8.6 mg TAB PO SCH ×2 (10:46→21:22)
[2021-10-26] MEDS: Vitamin THERAPEUTIC TAB PO SCH (10:47)
[2021-10-26] MEDS: Enoxaparin 40 MG/0.4 ML SYR SUBCUT SCH (10:48)
[2021-10-26] MEDS: Nystatin TOP POWDER 15 GM BTL TOPICAL SCH ×3 (10:53→21:22)
[2021-10-26] MEDS: Latanoprost 0.005% 2.5 ml BTL BOTH EYES SCH (21:22)
[2021-10-27] MEDS: Nystatin TOP POWDER 15 GM BTL TOPICAL SCH ×3 (03:50→21:50)
[2021-10-27] MEDS: Senna TAB 8.6 mg TAB PO SCH ×2 (09:31→21:48)
[2021-10-27] MEDS: Vitamin THERAPEUTIC TAB PO SCH (09:32)
[2021-10-27] MEDS: Enoxaparin 40 MG/0.4 ML SYR SUBCUT SCH (11:30)
[2021-10-27] MEDS: Latanoprost 0.005% 2.5 ml BTL BOTH EYES SCH (21:49)
[2021-10-28] MEDS: Senna TAB 8.6 mg TAB PO SCH ×2 (08:11→22:12)
[2021-10-28] MEDS: Vitamin THERAPEUTIC TAB PO SCH (08:12)
[2021-10-28] MEDS: Nystatin TOP POWDER 15 GM BTL TOPICAL SCH ×3 (08:13→22:13)
[2021-10-28] MEDS: Enoxaparin 40 MG/0.4 ML SYR SUBCUT SCH (16:38)
[2021-10-28] MEDS: Latanoprost 0.005% 2.5 ml BTL BOTH EYES SCH (22:13)
[2021-10-29] MEDS: Senna TAB 8.6 mg TAB PO SCH ×2 (08:51→20:28)
[2021-10-29] MEDS: Nystatin TOP POWDER 15 GM BTL TOPICAL SCH ×3 (08:52→20:29)
[2021-10-29] MEDS: Vitamin THERAPEUTIC TAB PO SCH (08:52)
[2021-10-29] MEDS: Enoxaparin 40 MG/0.4 ML SYR SUBCUT SCH (10:46)
[2021-10-29] MEDS: Latanoprost 0.005% 2.5 ml BTL BOTH EYES SCH (20:29)
[2021-10-30] MEDS: Vitamin THERAPEUTIC TAB PO SCH (08:36)
[2021-10-30] MEDS: Senna TAB 8.6 mg TAB PO SCH ×2 (08:38→22:09)
[2021-10-30] MEDS: Nystatin TOP POWDER 15 GM BTL TOPICAL SCH ×3 (08:58→22:09)
[2021-10-30] MEDS: Enoxaparin 40 MG/0.4 ML SYR SUBCUT SCH (12:36)
[2021-10-30] MEDS: Latanoprost 0.005% 2.5 ml BTL BOTH EYES SCH (22:09)
[2021-10-31] MEDS: Senna TAB 8.6 mg TAB PO SCH ×2 (08:46→20:44)
[2021-10-31] MEDS: Vitamin THERAPEUTIC TAB PO SCH (08:46)
[2021-10-31] MEDS: Nystatin TOP POWDER 15 GM BTL TOPICAL SCH ×3 (08:46→20:44)
[2021-10-31] MEDS: Enoxaparin 40 MG/0.4 ML SYR SUBCUT SCH (10:19)
[2021-10-31] MEDS: Latanoprost 0.005% 2.5 ml BTL BOTH EYES SCH (21:54)
[2021-11-01] MEDS: Senna TAB 8.6 mg TAB PO SCH ×2 (10:03→21:39)
[2021-11-01] MEDS: Vitamin THERAPEUTIC TAB PO SCH (10:03)
[2021-11-01] MEDS: Enoxaparin 40 MG/0.4 ML SYR SUBCUT SCH (10:04)
[2021-11-01] MEDS: Nystatin TOP POWDER 15 GM BTL TOPICAL SCH ×4 (14:16→21:40)
[2021-11-01] MEDS: Latanoprost 0.005% 2.5 ml BTL BOTH EYES SCH (21:40)
[2021-11-02] MEDS: Senna TAB 8.6 mg TAB PO SCH ×2 (10:45→19:59)
[2021-11-02] MEDS: Enoxaparin 40 MG/0.4 ML SYR SUBCUT SCH (10:45)
[2021-11-02] MEDS: Vitamin THERAPEUTIC TAB PO SCH (10:45)
[2021-11-02] MEDS: Nystatin TOP POWDER 15 GM BTL TOPICAL SCH ×3 (16:03→20:01)
[2021-11-02] MEDS: Latanoprost 0.005% 2.5 ml BTL BOTH EYES SCH (20:01)
[2021-11-03 08:13] LABS: Hematocrit 36 % (42-52); Hemoglobin 11.6 g/dL (14.0-18.0); Mean Corpuscular HGB Conc 32 g/dL (31-36); Mean Corpuscular Hemoglobin 27 pg (27-31); Mean Corpuscular Volume 85 fL (80-94); Mean Platelet Volume 7.3 fL (7.4-10.4); Platelet Count 365 10^3/uL (150-450); Red Blood Count 4.28 10^6 /uL (4.18-5.48); Red Cell Distribution Width 16 % (10-15); White Blood Count 14.1 10^3/uL (3.5-10.8)
[2021-11-03 08:28] LABS: Calcium 9.5 mg/dL (8.6-10.3); Magnesium 1.8 mg/dL (1.9-2.7); Potassium 3.8 mmol/L (3.5-5.0); eGFR CKD-EPI 126.3 (>60)
[2021-11-03] MEDS: Senna TAB 8.6 mg TAB PO SCH ×2 (08:47→20:30)
[2021-11-03] MEDS: Vitamin THERAPEUTIC TAB PO SCH (08:47)
[2021-11-03 08:49] LABS: ABS Basophils 0.1 10^3/ul (0-0.2); ABS Eosinophils 0.9 10^3/ul (0-0.6); ABS Lymphocytes 5.1 10^3/ul (1.0-4.8); ABS Monocytes 0.9 10^3/ul (0-0.8); ABS Neutrophils 7.1 10^3/ul (1.5-7.7); Eosinophil % 6.5 %
[2021-11-03] MEDS: Nystatin TOP POWDER 15 GM BTL TOPICAL SCH ×3 (08:49→20:31)
[2021-11-03] MEDS: Enoxaparin 40 MG/0.4 ML SYR SUBCUT SCH (10:36)
[2021-11-03] MEDS: Latanoprost 0.005% 2.5 ml BTL BOTH EYES SCH (20:31)
[2021-11-04] MEDS: Senna TAB 8.6 mg TAB PO SCH ×2 (09:38→21:51)
[2021-11-04] MEDS: Vitamin THERAPEUTIC TAB PO SCH (09:39)
[2021-11-04] MEDS: Enoxaparin 40 MG/0.4 ML SYR SUBCUT SCH (13:18)
[2021-11-04] MEDS: Nystatin TOP POWDER 15 GM BTL TOPICAL SCH ×3 (13:18→21:51)
[2021-11-04] MEDS: Latanoprost 0.005% 2.5 ml BTL BOTH EYES SCH (21:51)
[2021-11-05] MEDS: Senna TAB 8.6 mg TAB PO SCH ×2 (09:12→20:21)
[2021-11-05] MEDS: Nystatin TOP POWDER 15 GM BTL TOPICAL SCH ×3 (09:13→20:21)
[2021-11-05] MEDS: Vitamin THERAPEUTIC TAB PO SCH (09:13)
[2021-11-05 10:15] LABS: Urine Appearance Clear; Urine Bilirubin Negative (Negative); Urine Blood Negative (Negative); Urine Color Yellow; Urine Glucose Negative (Negative); Urine Ketones Negative (Negative); Urine Nitrite Negative (Negative); Urine Protein Negative (Negative); Urine Specific Gravity 1.023 (1.002-1.030); Urine Urobilinogen Negative (Negative)
[2021-11-05] MEDS: Enoxaparin 40 MG/0.4 ML SYR SUBCUT SCH (15:03)
[2021-11-05] MEDS ORDERED: Magnesium Sulfate 2 gm BAG 2 GM/50 ML BAG IVPB ONE (16:00)
[2021-11-05] MEDS: Latanoprost 0.005% 2.5 ml BTL BOTH EYES SCH (20:23)
[2021-11-06] MEDS: Vitamin THERAPEUTIC TAB PO SCH (08:37)
[2021-11-06] MEDS: Senna TAB 8.6 mg TAB PO SCH ×2 (08:37→20:35)
[2021-11-06] MEDS: Nystatin TOP POWDER 15 GM BTL TOPICAL SCH (08:38)
[2021-11-06] MEDS: Enoxaparin 40 MG/0.4 ML SYR SUBCUT SCH (11:30)
[2021-11-06] MEDS: Latanoprost 0.005% 2.5 ml BTL BOTH EYES SCH (20:36)
[2021-11-07] MEDS: Vitamin THERAPEUTIC TAB PO SCH (09:02)
[2021-11-07] MEDS: Senna TAB 8.6 mg TAB PO SCH ×2 (09:02→20:36)
[2021-11-07] MEDS: Enoxaparin 40 MG/0.4 ML SYR SUBCUT SCH (10:20)
[2021-11-07] MEDS: Latanoprost 0.005% 2.5 ml BTL BOTH EYES SCH (20:37)
[2021-11-08] MEDS: Senna TAB 8.6 mg TAB PO SCH ×2 (08:47→21:17)
[2021-11-08] MEDS: Vitamin THERAPEUTIC TAB PO SCH (08:47)
[2021-11-08] MEDS: Enoxaparin 40 MG/0.4 ML SYR SUBCUT SCH (13:04)
[2021-11-08] MEDS: Latanoprost 0.005% 2.5 ml BTL BOTH EYES SCH (22:05)
[2021-11-09] MEDS: Vitamin THERAPEUTIC TAB PO SCH (09:36)
[2021-11-09] MEDS: Senna TAB 8.6 mg TAB PO SCH ×2 (09:36→21:03)
[2021-11-09] MEDS: Enoxaparin 40 MG/0.4 ML SYR SUBCUT SCH (12:53)
[2021-11-09] MEDS: Latanoprost 0.005% 2.5 ml BTL BOTH EYES SCH (21:03)
[2021-11-10] MEDS: Senna TAB 8.6 mg TAB PO SCH ×2 (08:38→21:45)
[2021-11-10] MEDS: Vitamin THERAPEUTIC TAB PO SCH (08:38)
[2021-11-10] MEDS: Enoxaparin 40 MG/0.4 ML SYR SUBCUT SCH (12:54)
[2021-11-10] MEDS: Latanoprost 0.005% 2.5 ml BTL BOTH EYES SCH (21:51)
[2021-11-11] MEDS: Vitamin THERAPEUTIC TAB PO SCH (09:41)
[2021-11-11] MEDS: Senna TAB 8.6 mg TAB PO SCH ×2 (09:41→22:18)
[2021-11-11] MEDS: Enoxaparin 40 MG/0.4 ML SYR SUBCUT SCH (14:09)
[2021-11-11] MEDS: Latanoprost 0.005% 2.5 ml BTL BOTH EYES SCH (22:19)
[2021-11-12 07:51] LABS: ABS Basophils 0.1 10^3/ul (0-0.2); ABS Eosinophils 0.9 10^3/ul (0-0.6); ABS Lymphocytes 4.5 10^3/ul (1.0-4.8); ABS Monocytes 0.9 10^3/ul (0-0.8); ABS Neutrophils 6.9 10^3/ul (1.5-7.7); Eosinophil % 6.8 %; Hematocrit 34 % (42-52); Mean Corpuscular HGB Conc 32 g/dL (31-36); Mean Corpuscular Hemoglobin 27 pg (27-31); Mean Corpuscular Volume 84 fL (80-94); Mean Platelet Volume 6.9 fL (7.4-10.4); Platelet Count 384 10^3/uL (150-450); Red Blood Count 4.09 10^6 /uL (4.18-5.48); Red Cell Distribution Width 16 % (10-15); White Blood Count 13.3 10^3/uL (3.5-10.8)
[2021-11-12 08:12] LABS: Albumin 3.4 g/dL (3.2-5.2); Albumin/Globulin Ratio 1.4 (1-3); Calcium 9.2 mg/dL (8.6-10.3); Globulin 2.4 g/dL (2-4); Potassium 3.9 mmol/L (3.5-5.0); Total Bilirubin 0.3 mg/dL (0.2-1.0); Total Protein 5.8 g/dL (6.4-8.9); eGFR CKD-EPI 118.3 (>60)
[2021-11-12] MEDS: Vitamin THERAPEUTIC TAB PO SCH (09:02)
[2021-11-12] MEDS: Senna TAB 8.6 mg TAB PO SCH ×2 (09:02→21:49)
[2021-11-12] MEDS: Enoxaparin 40 MG/0.4 ML SYR SUBCUT SCH (12:39)
[2021-11-12] MEDS: Latanoprost 0.005% 2.5 ml BTL BOTH EYES SCH (21:50)
[2021-11-13] MEDS: Senna TAB 8.6 mg TAB PO SCH ×2 (09:16→21:33)
[2021-11-13] MEDS: Enoxaparin 40 MG/0.4 ML SYR SUBCUT SCH (09:16)
[2021-11-13] MEDS: Vitamin THERAPEUTIC TAB PO SCH (09:16)
[2021-11-13] MEDS: Latanoprost 0.005% 2.5 ml BTL BOTH EYES SCH (21:33)
[2021-11-14 07:58] VITALS: BP 136/80
[2021-11-14] MEDS: Vitamin THERAPEUTIC TAB PO SCH (08:22)
[2021-11-14] MEDS: Senna TAB 8.6 mg TAB PO SCH (08:22)
== END 2021-11-14 10:25 | DRG 58 ==
LOC: MEDTELE 09:30 → SUATTDRO 09:30
PROVIDERS: ADMIT Internal Medicine; ATTEND Internal Medicine

== ENCOUNTER 2021-11-14 09:39 | Inpatient (IN) ==
[2021-11-14] MEDS ORDERED: Al Hydrox/Mg Hydrox/Simet LIQ 30 ML UDC PO PRN (11:46)
[2021-11-14] MEDS ORDERED: Magnesium Hydroxide LIQ 30 ML UDC PO PRN (11:46)
[2021-11-14] MEDS ORDERED: Senna TAB 8.6 mg TAB PO PRN (11:46)
[2021-11-14] MEDS ORDERED: Enoxaparin 40 MG/0.4 ML SYR SUBCUT SCH (12:00)
[2021-11-14] MEDS ORDERED: Polyethylene Glycol 3350 17 GM PACKET PO PRN (12:04)
[2021-11-14] MEDS: Senna TAB 8.6 mg TAB PO SCH (22:06)
[2021-11-14] MEDS: Latanoprost 0.005% 2.5 ml BTL BOTH EYES SCH (22:06)
[2021-11-15 06:24] LABS: ABS Basophils 0.1 10^3/ul (0-0.2); ABS Eosinophils 0.9 10^3/ul (0-0.6); ABS Lymphocytes 4.7 10^3/ul (1.0-4.8); ABS Monocytes 0.9 10^3/ul (0-0.8); ABS Neutrophils 7.7 10^3/ul (1.5-7.7); Eosinophil % 6.3 %; Hematocrit 32 % (42-52); Hemoglobin 10.6 g/dL (14.0-18.0); Lymphocyte % 32.7 %; Mean Corpuscular HGB Conc 33 g/dL (31-36); Mean Corpuscular Hemoglobin 27 pg (27-31); Mean Corpuscular Volume 84 fL (80-94); Mean Platelet Volume 7.1 fL (7.4-10.4); Platelet Count 378 10^3/uL (150-450); Red Blood Count 3.86 10^6 /uL (4.18-5.48); Red Cell Distribution Width 16 % (10-15); White Blood Count 14.3 10^3/uL (3.5-10.8)
[2021-11-15 06:41] LABS: Albumin 3.3 g/dL (3.2-5.2); Albumin/Globulin Ratio 1.3 (1-3); Calcium 9.1 mg/dL (8.6-10.3); Globulin 2.6 g/dL (2-4); Total Bilirubin 0.3 mg/dL (0.2-1.0); Total Protein 5.9 g/dL (6.4-8.9); eGFR CKD-EPI 120.7 (>60)
[2021-11-15] MEDS: Senna TAB 8.6 mg TAB PO SCH ×2 (09:31→20:03)
[2021-11-15] MEDS: Multivitamins/Minerals TAB PO SCH (09:33)
[2021-11-15] MEDS: Enoxaparin 40 MG/0.4 ML SYR SUBCUT SCH (09:34)
[2021-11-15] MEDS: Latanoprost 0.005% 2.5 ml BTL BOTH EYES SCH (20:03)
[2021-11-16] MEDS: Multivitamins/Minerals TAB PO SCH (08:39)
[2021-11-16] MEDS: Enoxaparin 40 MG/0.4 ML SYR SUBCUT SCH (08:40)
[2021-11-16] MEDS: Senna TAB 8.6 mg TAB PO SCH ×2 (08:40→21:20)
[2021-11-16] MEDS: Latanoprost 0.005% 2.5 ml BTL BOTH EYES SCH (21:20)
[2021-11-17] MEDS: Enoxaparin 40 MG/0.4 ML SYR SUBCUT SCH (10:37)
[2021-11-17] MEDS: Multivitamins/Minerals TAB PO SCH (10:37)
[2021-11-17] MEDS: Senna TAB 8.6 mg TAB PO SCH ×2 (10:37→21:09)
[2021-11-17] MEDS: Latanoprost 0.005% 2.5 ml BTL BOTH EYES SCH (21:10)
[2021-11-18] MEDS: Enoxaparin 40 MG/0.4 ML SYR SUBCUT SCH (08:12)
[2021-11-18] MEDS: Multivitamins/Minerals TAB PO SCH (08:13)
[2021-11-18] MEDS: Senna TAB 8.6 mg TAB PO SCH ×2 (08:13→21:48)
[2021-11-18] MEDS: Latanoprost 0.005% 2.5 ml BTL BOTH EYES SCH (21:51)
[2021-11-19] MEDS: Enoxaparin 40 MG/0.4 ML SYR SUBCUT SCH (08:20)
[2021-11-19] MEDS: Multivitamins/Minerals TAB PO SCH (08:20)
[2021-11-19] MEDS: Senna TAB 8.6 mg TAB PO SCH ×2 (08:20→21:31)
[2021-11-19] MEDS: Latanoprost 0.005% 2.5 ml BTL BOTH EYES SCH (21:33)
[2021-11-20] MEDS: Senna TAB 8.6 mg TAB PO SCH ×2 (09:28→22:14)
[2021-11-20] MEDS: Multivitamins/Minerals TAB PO SCH (09:28)
[2021-11-20] MEDS: Enoxaparin 40 MG/0.4 ML SYR SUBCUT SCH (09:29)
[2021-11-20] MEDS: Latanoprost 0.005% 2.5 ml BTL BOTH EYES SCH (22:14)
[2021-11-21] MEDS: Multivitamins/Minerals TAB PO SCH (08:55)
[2021-11-21] MEDS: Enoxaparin 40 MG/0.4 ML SYR SUBCUT SCH (08:55)
[2021-11-21] MEDS: Senna TAB 8.6 mg TAB PO SCH ×2 (08:55→21:42)
[2021-11-21] MEDS: Latanoprost 0.005% 2.5 ml BTL BOTH EYES SCH (21:42)
[2021-11-22 06:56] LABS: ABS Basophils 0.1 10^3/ul (0-0.2); ABS Eosinophils 0.7 10^3/ul (0-0.6); ABS Lymphocytes 4.7 10^3/ul (1.0-4.8); ABS Monocytes 0.8 10^3/ul (0-0.8); Eosinophil % 5.8 %; Hematocrit 33 % (42-52); Hemoglobin 10.8 g/dL (14.0-18.0); Lymphocyte % 38.6 %; Mean Corpuscular HGB Conc 32 g/dL (31-36); Mean Corpuscular Hemoglobin 27 pg (27-31); Mean Corpuscular Volume 83 fL (80-94); Mean Platelet Volume 6.8 fL (7.4-10.4); Platelet Count 438 10^3/uL (150-450); Red Blood Count 4.01 10^6 /uL (4.18-5.48); Red Cell Distribution Width 16 % (10-15); White Blood Count 12.2 10^3/uL (3.5-10.8)
[2021-11-22 07:11] LABS: Albumin 3.3 g/dL (3.2-5.2); Albumin/Globulin Ratio 1.2 (1-3); Calcium 9.3 mg/dL (8.6-10.3); Globulin 2.7 g/dL (2-4); Potassium 3.9 mmol/L (3.5-5.0); Total Bilirubin 0.3 mg/dL (0.2-1.0); eGFR CKD-EPI 119.1 (>60)
[2021-11-22] MEDS: Multivitamins/Minerals TAB PO SCH (07:40)
[2021-11-22] MEDS: Senna TAB 8.6 mg TAB PO SCH ×2 (07:40→22:12)
[2021-11-22] MEDS: Enoxaparin 40 MG/0.4 ML SYR SUBCUT SCH (08:52)
[2021-11-22] MEDS: Latanoprost 0.005% 2.5 ml BTL BOTH EYES SCH (22:12)
[2021-11-23] MEDS: Multivitamins/Minerals TAB PO SCH (08:07)
[2021-11-23] MEDS: Senna TAB 8.6 mg TAB PO SCH ×2 (08:07→22:13)
[2021-11-23] MEDS: Enoxaparin 40 MG/0.4 ML SYR SUBCUT SCH (08:08)
[2021-11-23] MEDS: Latanoprost 0.005% 2.5 ml BTL BOTH EYES SCH (22:13)
[2021-11-24] MEDS: Multivitamins/Minerals TAB PO SCH (09:17)
[2021-11-24] MEDS: Senna TAB 8.6 mg TAB PO SCH ×2 (09:17→20:29)
[2021-11-24] MEDS: Enoxaparin 40 MG/0.4 ML SYR SUBCUT SCH (09:19)
[2021-11-24] MEDS: Latanoprost 0.005% 2.5 ml BTL BOTH EYES SCH (20:28)
[2021-11-25] MEDS: Senna TAB 8.6 mg TAB PO SCH ×2 (10:01→21:22)
[2021-11-25] MEDS: Multivitamins/Minerals TAB PO SCH (10:01)
[2021-11-25] MEDS: Enoxaparin 40 MG/0.4 ML SYR SUBCUT SCH (10:02)
[2021-11-25] MEDS: Latanoprost 0.005% 2.5 ml BTL BOTH EYES SCH (21:22)
[2021-11-26] MEDS: Senna TAB 8.6 mg TAB PO SCH ×2 (08:45→22:12)
[2021-11-26] MEDS: Multivitamins/Minerals TAB PO SCH (08:45)
[2021-11-26] MEDS: Enoxaparin 40 MG/0.4 ML SYR SUBCUT SCH (08:47)
[2021-11-26] MEDS: Latanoprost 0.005% 2.5 ml BTL BOTH EYES SCH (22:11)
[2021-11-27] MEDS: Senna TAB 8.6 mg TAB PO SCH ×2 (08:14→21:57)
[2021-11-27] MEDS: Multivitamins/Minerals TAB PO SCH (08:14)
[2021-11-27] MEDS: Enoxaparin 40 MG/0.4 ML SYR SUBCUT SCH (08:15)
[2021-11-27] MEDS: Latanoprost 0.005% 2.5 ml BTL BOTH EYES SCH (21:58)
[2021-11-28] MEDS: Senna TAB 8.6 mg TAB PO SCH ×2 (09:46→20:46)
[2021-11-28] MEDS: Multivitamins/Minerals TAB PO SCH (09:47)
[2021-11-28] MEDS: Enoxaparin 40 MG/0.4 ML SYR SUBCUT SCH (09:48)
[2021-11-28] MEDS: Latanoprost 0.005% 2.5 ml BTL BOTH EYES SCH (20:46)
[2021-11-29 05:40] LABS: Hematocrit 35 % (42-52); Hemoglobin 11.3 g/dL (14.0-18.0); Mean Corpuscular HGB Conc 32 g/dL (31-36); Mean Corpuscular Hemoglobin 26 pg (27-31); Mean Corpuscular Volume 82 fL (80-94); Mean Platelet Volume 6.8 fL (7.4-10.4); Platelet Count 431 10^3/uL (150-450); Red Blood Count 4.31 10^6 /uL (4.18-5.48); Red Cell Distribution Width 16 % (10-15); White Blood Count 13.8 10^3/uL (3.5-10.8)
[2021-11-29 05:55] LABS: Albumin 3.4 g/dL (3.2-5.2); Albumin/Globulin Ratio 1.4 (1-3); Calcium 9.4 mg/dL (8.6-10.3); Globulin 2.4 g/dL (2-4); Potassium 3.9 mmol/L (3.5-5.0); Total Bilirubin 0.3 mg/dL (0.2-1.0); Total Protein 5.8 g/dL (6.4-8.9); eGFR CKD-EPI 119.1 (>60)
[2021-11-29 07:41] LABS: ABS Basophils 0.1 10^3/ul (0-0.2); ABS Lymphocytes 5.8 10^3/ul (1.0-4.8); ABS Monocytes 0.7 10^3/ul (0-0.8); ABS Neutrophils 6.2 10^3/ul (1.5-7.7); Anisocytosis 1+; Nucleated Red Blood Cells % 0.1
[2021-11-29] MEDS: Enoxaparin 40 MG/0.4 ML SYR SUBCUT SCH (09:44)
[2021-11-29] MEDS: Senna TAB 8.6 mg TAB PO SCH ×2 (09:45→20:18)
[2021-11-29] MEDS: Multivitamins/Minerals TAB PO SCH (09:45)
[2021-11-29] MEDS: Latanoprost 0.005% 2.5 ml BTL BOTH EYES SCH (20:18)
[2021-11-30] MEDS: Multivitamins/Minerals TAB PO SCH (09:59)
[2021-11-30] MEDS: Senna TAB 8.6 mg TAB PO SCH ×2 (10:00→19:58)
[2021-11-30] MEDS: Enoxaparin 40 MG/0.4 ML SYR SUBCUT SCH (10:00)
[2021-11-30] MEDS: Latanoprost 0.005% 2.5 ml BTL BOTH EYES SCH (19:58)
[2021-12-01] MEDS: Enoxaparin 40 MG/0.4 ML SYR SUBCUT SCH (10:44)
[2021-12-01] MEDS: Multivitamins/Minerals TAB PO SCH (10:44)
[2021-12-01] MEDS: Senna TAB 8.6 mg TAB PO SCH ×2 (10:44→21:23)
[2021-12-01] MEDS: Latanoprost 0.005% 2.5 ml BTL BOTH EYES SCH (21:23)
[2021-12-02] MEDS: Enoxaparin 40 MG/0.4 ML SYR SUBCUT SCH (08:36)
[2021-12-02] MEDS: Multivitamins/Minerals TAB PO SCH (08:37)
[2021-12-02] MEDS: Senna TAB 8.6 mg TAB PO SCH ×2 (08:37→22:05)
[2021-12-02] MEDS: Latanoprost 0.005% 2.5 ml BTL BOTH EYES SCH (22:06)
[2021-12-03] MEDS: Multivitamins/Minerals TAB PO SCH (07:39)
[2021-12-03] MEDS: Senna TAB 8.6 mg TAB PO SCH ×2 (07:40→20:47)
[2021-12-03] MEDS: Enoxaparin 40 MG/0.4 ML SYR SUBCUT SCH (07:41)
[2021-12-03] MEDS: Latanoprost 0.005% 2.5 ml BTL BOTH EYES SCH (20:47)
[2021-12-04] MEDS: Senna TAB 8.6 mg TAB PO SCH ×2 (08:34→21:57)
[2021-12-04] MEDS: Multivitamins/Minerals TAB PO SCH (08:34)
[2021-12-04] MEDS: Enoxaparin 40 MG/0.4 ML SYR SUBCUT SCH (08:34)
[2021-12-04] MEDS: Latanoprost 0.005% 2.5 ml BTL BOTH EYES SCH (21:58)
[2021-12-05] MEDS: Senna TAB 8.6 mg TAB PO SCH ×2 (09:43→20:32)
[2021-12-05] MEDS: Enoxaparin 40 MG/0.4 ML SYR SUBCUT SCH (09:43)
[2021-12-05] MEDS: Multivitamins/Minerals TAB PO SCH (09:43)
[2021-12-05] MEDS: Latanoprost 0.005% 2.5 ml BTL BOTH EYES SCH (20:14)
[2021-12-06 05:16] LABS: Hematocrit 35 % (42-52); Hemoglobin 11.3 g/dL (14.0-18.0); Mean Corpuscular HGB Conc 32 g/dL (31-36); Mean Corpuscular Hemoglobin 26 pg (27-31); Mean Corpuscular Volume 82 fL (80-94); Mean Platelet Volume 6.8 fL (7.4-10.4); Platelet Count 366 10^3/uL (150-450); Red Blood Count 4.27 10^6 /uL (4.18-5.48); Red Cell Distribution Width 16 % (10-15); White Blood Count 13.4 10^3/uL (3.5-10.8)
[2021-12-06 05:19] LABS: ABS Basophils 0.1 10^3/ul (0-0.2); ABS Eosinophils 0.7 10^3/ul (0-0.6); ABS Lymphocytes 6.1 10^3/ul (1.0-4.8); ABS Monocytes 0.7 10^3/ul (0-0.8); ABS Neutrophils 5.8 10^3/ul (1.5-7.7); Lymphocyte % 45.7 %
[2021-12-06 05:35] LABS: Albumin 3.4 g/dL (3.2-5.2); Albumin/Globulin Ratio 1.6 (1-3); Calcium 9.2 mg/dL (8.6-10.3); Globulin 2.1 g/dL (2-4); Potassium 3.8 mmol/L (3.5-5.0); Total Bilirubin 0.3 mg/dL (0.2-1.0); Total Protein 5.5 g/dL (6.4-8.9); eGFR CKD-EPI 115.3 (>60)
[2021-12-06] MEDS: Multivitamins/Minerals TAB PO SCH (09:24)
[2021-12-06] MEDS: Senna TAB 8.6 mg TAB PO SCH ×2 (09:24→20:43)
[2021-12-06] MEDS: Enoxaparin 40 MG/0.4 ML SYR SUBCUT SCH (09:25)
[2021-12-06] MEDS: Latanoprost 0.005% 2.5 ml BTL BOTH EYES SCH (20:45)
[2021-12-07] MEDS: Enoxaparin 40 MG/0.4 ML SYR SUBCUT SCH (09:55)
[2021-12-07] MEDS: Senna TAB 8.6 mg TAB PO SCH ×2 (09:56→21:38)
[2021-12-07] MEDS: Multivitamins/Minerals TAB PO SCH (09:56)
[2021-12-07] MEDS: Latanoprost 0.005% 2.5 ml BTL BOTH EYES SCH (21:39)
[2021-12-08] MEDS: Enoxaparin 40 MG/0.4 ML SYR SUBCUT SCH (08:51)
[2021-12-08] MEDS: Multivitamins/Minerals TAB PO SCH (08:52)
[2021-12-08] MEDS: Senna TAB 8.6 mg TAB PO SCH ×2 (12:58→22:06)
[2021-12-08] MEDS: Latanoprost 0.005% 2.5 ml BTL BOTH EYES SCH (22:06)
[2021-12-09] MEDS: Enoxaparin 40 MG/0.4 ML SYR SUBCUT SCH (10:38)
[2021-12-09] MEDS: Multivitamins/Minerals TAB PO SCH (10:39)
[2021-12-09] MEDS: Senna TAB 8.6 mg TAB PO SCH ×2 (10:39→21:58)
[2021-12-09] MEDS: Latanoprost 0.005% 2.5 ml BTL BOTH EYES SCH (21:59)
[2021-12-10] MEDS: Multivitamins/Minerals TAB PO SCH (09:22)
[2021-12-10] MEDS: Enoxaparin 40 MG/0.4 ML SYR SUBCUT SCH (09:22)
[2021-12-10] MEDS: Senna TAB 8.6 mg TAB PO SCH ×2 (09:22→22:10)
[2021-12-10] MEDS: Latanoprost 0.005% 2.5 ml BTL BOTH EYES SCH (22:04)
[2021-12-11] MEDS: Senna TAB 8.6 mg TAB PO SCH ×2 (08:41→21:20)
[2021-12-11] MEDS: Multivitamins/Minerals TAB PO SCH (08:41)
[2021-12-11] MEDS: Enoxaparin 40 MG/0.4 ML SYR SUBCUT SCH (08:43)
[2021-12-11] MEDS: Latanoprost 0.005% 2.5 ml BTL BOTH EYES SCH (21:20)
[2021-12-12] MEDS: Senna TAB 8.6 mg TAB PO SCH ×2 (08:47→21:17)
[2021-12-12] MEDS: Multivitamins/Minerals TAB PO SCH (08:47)
[2021-12-12] MEDS: Enoxaparin 40 MG/0.4 ML SYR SUBCUT SCH (08:48)
[2021-12-12] MEDS: Latanoprost 0.005% 2.5 ml BTL BOTH EYES SCH (21:19)
[2021-12-13 06:13] LABS: Hematocrit 38 % (42-52); Hemoglobin 12.3 g/dL (14.0-18.0); Mean Corpuscular HGB Conc 32 g/dL (31-36); Mean Corpuscular Hemoglobin 27 pg (27-31); Mean Corpuscular Volume 82 fL (80-94); Platelet Count 354 10^3/uL (150-450); Red Blood Count 4.59 10^6 /uL (4.18-5.48); Red Cell Distribution Width 16 % (10-15); White Blood Count 12.3 10^3/uL (3.5-10.8)
[2021-12-13 06:32] LABS: Albumin 3.5 g/dL (3.2-5.2); Albumin/Globulin Ratio 1.5 (1-3); Calcium 9.1 mg/dL (8.6-10.3); Globulin 2.3 g/dL (2-4); Potassium 3.8 mmol/L (3.5-5.0); Total Bilirubin 0.3 mg/dL (0.2-1.0); Total Protein 5.8 g/dL (6.4-8.9); eGFR CKD-EPI 117.5 (>60)
[2021-12-13 06:37] LABS: ABS Basophils 0.1 10^3/ul (0-0.2); ABS Eosinophils 0.6 10^3/ul (0-0.6); ABS Lymphocytes 5.3 10^3/ul (1.0-4.8); ABS Monocytes 0.7 10^3/ul (0-0.8); ABS Neutrophils 5.7 10^3/ul (1.5-7.7); Eosinophil % 4.6 %
[2021-12-13] MEDS: Senna TAB 8.6 mg TAB PO SCH ×2 (09:42→22:02)
[2021-12-13] MEDS: Multivitamins/Minerals TAB PO SCH (09:42)
[2021-12-13] MEDS: Enoxaparin 40 MG/0.4 ML SYR SUBCUT SCH (09:43)
[2021-12-13] MEDS: Latanoprost 0.005% 2.5 ml BTL BOTH EYES SCH (22:02)
[2021-12-14] MEDS: Enoxaparin 40 MG/0.4 ML SYR SUBCUT SCH (12:39)
[2021-12-14] MEDS: Multivitamins/Minerals TAB PO SCH (12:40)
[2021-12-14] MEDS: Senna TAB 8.6 mg TAB PO SCH ×2 (12:40→22:03)
[2021-12-14] MEDS: Latanoprost 0.005% 2.5 ml BTL BOTH EYES SCH (22:02)
[2021-12-15] MEDS: Multivitamins/Minerals TAB PO SCH (10:02)
[2021-12-15] MEDS: Enoxaparin 40 MG/0.4 ML SYR SUBCUT SCH (10:02)
[2021-12-15] MEDS: Senna TAB 8.6 mg TAB PO SCH ×2 (10:02→21:10)
[2021-12-15] MEDS: Latanoprost 0.005% 2.5 ml BTL BOTH EYES SCH (21:12)
[2021-12-16] MEDS: Multivitamins/Minerals TAB PO SCH (08:55)
[2021-12-16] MEDS: Enoxaparin 40 MG/0.4 ML SYR SUBCUT SCH (08:55)
[2021-12-16] MEDS: Senna TAB 8.6 mg TAB PO SCH ×2 (08:56→21:30)
[2021-12-16] MEDS: Latanoprost 0.005% 2.5 ml BTL BOTH EYES SCH (21:30)
[2021-12-17] MEDS: Multivitamins/Minerals TAB PO SCH (08:12)
[2021-12-17] MEDS: Senna TAB 8.6 mg TAB PO SCH ×2 (08:12→22:05)
[2021-12-17] MEDS: Enoxaparin 40 MG/0.4 ML SYR SUBCUT SCH (08:13)
[2021-12-17] MEDS: Latanoprost 0.005% 2.5 ml BTL BOTH EYES SCH (22:18)
[2021-12-18] MEDS: Enoxaparin 40 MG/0.4 ML SYR SUBCUT SCH (10:40)
[2021-12-18] MEDS: Senna TAB 8.6 mg TAB PO SCH ×2 (10:40→21:50)
[2021-12-18] MEDS: Multivitamins/Minerals TAB PO SCH (10:40)
[2021-12-18] MEDS: Latanoprost 0.005% 2.5 ml BTL BOTH EYES SCH (21:50)
[2021-12-19] MEDS: Senna TAB 8.6 mg TAB PO SCH ×2 (11:26→21:04)
[2021-12-19] MEDS: Multivitamins/Minerals TAB PO SCH (11:26)
[2021-12-19] MEDS: Enoxaparin 40 MG/0.4 ML SYR SUBCUT SCH (11:27)
[2021-12-19] MEDS: Latanoprost 0.005% 2.5 ml BTL BOTH EYES SCH (21:00)
[2021-12-19] MEDS: Bacitracin OINTMENT TUBE TOPICAL PRN (21:02)
[2021-12-20 06:23] LABS: Hematocrit 37 % (42-52); Hemoglobin 11.6 g/dL (14.0-18.0); Mean Corpuscular HGB Conc 31 g/dL (31-36); Mean Corpuscular Hemoglobin 26 pg (27-31); Mean Corpuscular Volume 82 fL (80-94); Platelet Count 367 10^3/uL (150-450); Red Cell Distribution Width 16 % (10-15); White Blood Count 12.4 10^3/uL (3.5-10.8)
[2021-12-20 06:28] LABS: ABS Basophils 0.1 10^3/ul (0-0.2); ABS Eosinophils 0.7 10^3/ul (0-0.6); ABS Lymphocytes 5.1 10^3/ul (1.0-4.8); ABS Monocytes 0.7 10^3/ul (0-0.8); ABS Neutrophils 5.7 10^3/ul (1.5-7.7); Lymphocyte % 41.5 %; Nucleated Red Blood Cells % 0.1
[2021-12-20 06:37] LABS: Albumin 3.5 g/dL (3.2-5.2); Albumin/Globulin Ratio 1.7 (1-3); Calcium 9.2 mg/dL (8.6-10.3); Globulin 2.1 g/dL (2-4); Potassium 3.8 mmol/L (3.5-5.0); Total Bilirubin 0.3 mg/dL (0.2-1.0); Total Protein 5.6 g/dL (6.4-8.9); eGFR CKD-EPI 116.8 (>60)
[2021-12-20] MEDS: Senna TAB 8.6 mg TAB PO SCH ×2 (08:18→21:33)
[2021-12-20] MEDS: Multivitamins/Minerals TAB PO SCH (08:18)
[2021-12-20] MEDS: Enoxaparin 40 MG/0.4 ML SYR SUBCUT SCH (08:18)
[2021-12-20] MEDS ORDERED: Carboxymethylcellulose/Glyceri 10 ML OPHTH.GEL lubricant eye gel BOTH EYES PRN ×2 (18:48→20:48)
[2021-12-20] MEDS: Latanoprost 0.005% 2.5 ml BTL BOTH EYES SCH (21:33)
[2021-12-20] MEDS: Bacitracin OINTMENT TUBE TOPICAL PRN (21:33)
[2021-12-21] MEDS: Multivitamins/Minerals TAB PO SCH (08:25)
[2021-12-21] MEDS: Senna TAB 8.6 mg TAB PO SCH ×2 (08:25→20:43)
[2021-12-21] MEDS: Enoxaparin 40 MG/0.4 ML SYR SUBCUT SCH (08:26)
[2021-12-21] MEDS: GLYCERI BOTH EYES PRN (13:35)
[2021-12-21] MEDS: CARBOXYMETHYLCELLULOSE LUBRICANT EYE BOTH EYES PRN (13:35)
[2021-12-21] MEDS: Latanoprost 0.005% 2.5 ml BTL BOTH EYES SCH (20:43)
[2021-12-22] MEDS: Enoxaparin 40 MG/0.4 ML SYR SUBCUT SCH (09:59)
[2021-12-22] MEDS: Senna TAB 8.6 mg TAB PO SCH ×2 (09:59→21:23)
[2021-12-22] MEDS: Multivitamins/Minerals TAB PO SCH (09:59)
[2021-12-22] MEDS: Latanoprost 0.005% 2.5 ml BTL BOTH EYES SCH (21:26)
[2021-12-23] MEDS: Enoxaparin 40 MG/0.4 ML SYR SUBCUT SCH (09:14)
[2021-12-23] MEDS: Senna TAB 8.6 mg TAB PO SCH ×2 (09:14→21:46)
[2021-12-23] MEDS: Multivitamins/Minerals TAB PO SCH (09:15)
[2021-12-23] MEDS: Latanoprost 0.005% 2.5 ml BTL BOTH EYES SCH (21:45)
[2021-12-24] MEDS: Enoxaparin 40 MG/0.4 ML SYR SUBCUT SCH (09:00)
[2021-12-24] MEDS: Multivitamins/Minerals TAB PO SCH (09:00)
[2021-12-24] MEDS: Senna TAB 8.6 mg TAB PO SCH ×2 (09:00→21:55)
[2021-12-24] MEDS: Latanoprost 0.005% 2.5 ml BTL BOTH EYES SCH (21:56)
[2021-12-25] MEDS: Multivitamins/Minerals TAB PO SCH (10:11)
[2021-12-25] MEDS: Senna TAB 8.6 mg TAB PO SCH ×2 (10:11→21:46)
[2021-12-25] MEDS: Enoxaparin 40 MG/0.4 ML SYR SUBCUT SCH (10:11)
[2021-12-25] MEDS: Latanoprost 0.005% 2.5 ml BTL BOTH EYES SCH (21:48)
[2021-12-26] MEDS: Senna TAB 8.6 mg TAB PO SCH ×2 (09:34→21:36)
[2021-12-26] MEDS: Multivitamins/Minerals TAB PO SCH (09:34)
[2021-12-26] MEDS: Enoxaparin 40 MG/0.4 ML SYR SUBCUT SCH (09:36)
[2021-12-26] MEDS: Latanoprost 0.005% 2.5 ml BTL BOTH EYES SCH (21:37)
[2021-12-27 05:27] LABS: Hematocrit 38 % (42-52); Mean Corpuscular HGB Conc 32 g/dL (31-36); Mean Corpuscular Hemoglobin 26 pg (27-31); Mean Corpuscular Volume 82 fL (80-94); Platelet Count 353 10^3/uL (150-450); Red Blood Count 4.57 10^6 /uL (4.18-5.48); Red Cell Distribution Width 17 % (10-15); White Blood Count 12.5 10^3/uL (3.5-10.8)
[2021-12-27 05:30] LABS: ABS Basophils 0.1 10^3/ul (0-0.2); ABS Eosinophils 0.5 10^3/ul (0-0.6); ABS Lymphocytes 5.4 10^3/ul (1.0-4.8); ABS Monocytes 0.7 10^3/ul (0-0.8); ABS Neutrophils 5.7 10^3/ul (1.5-7.7); Eosinophil % 4.3 %; Lymphocyte % 43.5 %; Nucleated Red Blood Cells % 0.1
[2021-12-27 05:42] LABS: Albumin 3.5 g/dL (3.2-5.2); Albumin/Globulin Ratio 1.8 (1-3); Calcium 9.2 mg/dL (8.6-10.3); Globulin 1.9 g/dL (2-4); Potassium 3.9 mmol/L (3.5-5.0); Total Bilirubin 0.3 mg/dL (0.2-1.0); Total Protein 5.4 g/dL (6.4-8.9); eGFR CKD-EPI 115.3 (>60)
[2021-12-27] MEDS: Multivitamins/Minerals TAB PO SCH (10:23)
[2021-12-27] MEDS: Enoxaparin 40 MG/0.4 ML SYR SUBCUT SCH (10:24)
[2021-12-27] MEDS: Senna TAB 8.6 mg TAB PO SCH ×2 (10:24→20:59)
[2021-12-27] MEDS: Latanoprost 0.005% 2.5 ml BTL BOTH EYES SCH (20:59)
[2021-12-28] MEDS: Enoxaparin 40 MG/0.4 ML SYR SUBCUT SCH (08:12)
[2021-12-28] MEDS: Senna TAB 8.6 mg TAB PO SCH ×2 (08:13→21:05)
[2021-12-28] MEDS: Multivitamins/Minerals TAB PO SCH (08:13)
[2021-12-28] MEDS: Latanoprost 0.005% 2.5 ml BTL BOTH EYES SCH (21:05)
[2021-12-29] MEDS: Enoxaparin 40 MG/0.4 ML SYR SUBCUT SCH (08:06)
[2021-12-29] MEDS: Senna TAB 8.6 mg TAB PO SCH ×2 (08:06→21:46)
[2021-12-29] MEDS: Multivitamins/Minerals TAB PO SCH (08:06)
[2021-12-29] MEDS: CARBOXYMETHYLCELLULOSE LUBRICANT EYE BOTH EYES PRN (13:29)
[2021-12-29] MEDS: GLYCERI BOTH EYES PRN (13:29)
[2021-12-29] MEDS: Latanoprost 0.005% 2.5 ml BTL BOTH EYES SCH (21:46)
[2021-12-30] MEDS: Enoxaparin 40 MG/0.4 ML SYR SUBCUT SCH (11:05)
[2021-12-30] MEDS: Senna TAB 8.6 mg TAB PO SCH ×2 (11:05→21:40)
[2021-12-30] MEDS: Multivitamins/Minerals TAB PO SCH (11:05)
[2021-12-30] MEDS: Latanoprost 0.005% 2.5 ml BTL BOTH EYES SCH (21:41)
[2021-12-31] MEDS: Multivitamins/Minerals TAB PO SCH (09:04)
[2021-12-31] MEDS: Senna TAB 8.6 mg TAB PO SCH ×2 (09:04→22:16)
[2021-12-31] MEDS: Enoxaparin 40 MG/0.4 ML SYR SUBCUT SCH (09:05)
[2021-12-31] MEDS: CARBOXYMETHYLCELLULOSE LUBRICANT EYE BOTH EYES PRN (12:49)
[2021-12-31] MEDS: GLYCERI BOTH EYES PRN (12:49)
[2021-12-31] MEDS: Latanoprost 0.005% 2.5 ml BTL BOTH EYES SCH (22:15)
[2022-01-01] MEDS: GLYCERI BOTH EYES PRN (08:05)
[2022-01-01] MEDS: CARBOXYMETHYLCELLULOSE LUBRICANT EYE BOTH EYES PRN (08:05)
[2022-01-01] MEDS: Senna TAB 8.6 mg TAB PO SCH ×2 (08:06→22:02)
[2022-01-01] MEDS: Multivitamins/Minerals TAB PO SCH (08:06)
[2022-01-01] MEDS: Enoxaparin 40 MG/0.4 ML SYR SUBCUT SCH (08:08)
[2022-01-01] MEDS: Bacitracin OINTMENT TUBE TOPICAL PRN (21:12)
[2022-01-01] MEDS: Latanoprost 0.005% 2.5 ml BTL BOTH EYES SCH (22:02)
[2022-01-02] MEDS: Senna TAB 8.6 mg TAB PO SCH ×2 (08:57→22:06)
[2022-01-02] MEDS: Multivitamins/Minerals TAB PO SCH (08:57)
[2022-01-02] MEDS: Enoxaparin 40 MG/0.4 ML SYR SUBCUT SCH (09:03)
[2022-01-02] MEDS: Latanoprost 0.005% 2.5 ml BTL BOTH EYES SCH (22:06)
[2022-01-03 06:14] LABS: ABS Eosinophils 0.5 10^3/ul (0-0.6); ABS Lymphocytes 4.6 10^3/ul (1.0-4.8); ABS Monocytes 0.6 10^3/ul (0-0.8); ABS Neutrophils 5.3 10^3/ul (1.5-7.7); Eosinophil % 4.6 %; Hematocrit 36 % (42-52); Hemoglobin 11.8 g/dL (14.0-18.0); Lymphocyte % 41.6 %; Mean Corpuscular HGB Conc 33 g/dL (31-36); Mean Corpuscular Hemoglobin 27 pg (27-31); Mean Corpuscular Volume 82 fL (80-94); Platelet Count 358 10^3/uL (150-450); Red Blood Count 4.42 10^6 /uL (4.18-5.48); Red Cell Distribution Width 16 % (10-15); White Blood Count 11.1 10^3/uL (3.5-10.8)
[2022-01-03 06:39] LABS: Albumin 3.5 g/dL (3.2-5.2); Albumin/Globulin Ratio 2.1 (1-3); Calcium 9.1 mg/dL (8.6-10.3); Globulin 1.7 g/dL (2-4); Potassium 4.1 mmol/L (3.5-5.0); Total Bilirubin 0.3 mg/dL (0.2-1.0); Total Protein 5.2 g/dL (6.4-8.9); eGFR CKD-EPI 117.5 (>60)
[2022-01-03] MEDS: Senna TAB 8.6 mg TAB PO SCH ×2 (07:44→21:55)
[2022-01-03] MEDS: Multivitamins/Minerals TAB PO SCH (07:44)
[2022-01-03] MEDS: Enoxaparin 40 MG/0.4 ML SYR SUBCUT SCH (07:46)
[2022-01-03] MEDS: GLYCERI BOTH EYES PRN (07:48)
[2022-01-03] MEDS: CARBOXYMETHYLCELLULOSE LUBRICANT EYE BOTH EYES PRN (07:48)
[2022-01-03] MEDS: Latanoprost 0.005% 2.5 ml BTL BOTH EYES SCH (21:57)
[2022-01-04] MEDS: Multivitamins/Minerals TAB PO SCH (08:53)
[2022-01-04] MEDS: Enoxaparin 40 MG/0.4 ML SYR SUBCUT SCH (08:53)
[2022-01-04] MEDS: Senna TAB 8.6 mg TAB PO SCH ×2 (08:53→21:29)
[2022-01-04] MEDS: GLYCERI BOTH EYES PRN (13:44)
[2022-01-04] MEDS: CARBOXYMETHYLCELLULOSE LUBRICANT EYE BOTH EYES PRN (13:44)
[2022-01-04] MEDS: Latanoprost 0.005% 2.5 ml BTL BOTH EYES SCH (21:29)
[2022-01-05] MEDS: Senna TAB 8.6 mg TAB PO SCH ×2 (10:18→21:45)
[2022-01-05] MEDS: Multivitamins/Minerals TAB PO SCH (10:18)
[2022-01-05] MEDS: Enoxaparin 40 MG/0.4 ML SYR SUBCUT SCH (10:19)
[2022-01-05] MEDS: Latanoprost 0.005% 2.5 ml BTL BOTH EYES SCH (21:45)
[2022-01-06] MEDS: Senna TAB 8.6 mg TAB PO SCH ×2 (10:33→21:45)
[2022-01-06] MEDS: Multivitamins/Minerals TAB PO SCH (10:33)
[2022-01-06] MEDS: Enoxaparin 40 MG/0.4 ML SYR SUBCUT SCH (10:34)
[2022-01-06] MEDS: Latanoprost 0.005% 2.5 ml BTL BOTH EYES SCH (21:48)
[2022-01-07] MEDS: Multivitamins/Minerals TAB PO SCH (09:10)
[2022-01-07] MEDS: Senna TAB 8.6 mg TAB PO SCH ×2 (09:10→20:52)
[2022-01-07] MEDS: Enoxaparin 40 MG/0.4 ML SYR SUBCUT SCH (09:11)
[2022-01-07] MEDS: GLYCERI BOTH EYES PRN (12:59)
[2022-01-07] MEDS: CARBOXYMETHYLCELLULOSE LUBRICANT EYE BOTH EYES PRN (12:59)
[2022-01-07] MEDS: Latanoprost 0.005% 2.5 ml BTL BOTH EYES SCH (20:53)
[2022-01-08] MEDS: Senna TAB 8.6 mg TAB PO SCH ×2 (09:49→22:04)
[2022-01-08] MEDS: Multivitamins/Minerals TAB PO SCH (09:49)
[2022-01-08] MEDS: Enoxaparin 40 MG/0.4 ML SYR SUBCUT SCH (09:51)
[2022-01-08] MEDS: GLYCERI BOTH EYES PRN (14:27)
[2022-01-08] MEDS: CARBOXYMETHYLCELLULOSE LUBRICANT EYE BOTH EYES PRN (14:27)
[2022-01-08] MEDS: Latanoprost 0.005% 2.5 ml BTL BOTH EYES SCH (22:04)
[2022-01-09] MEDS: Multivitamins/Minerals TAB PO SCH (08:55)
[2022-01-09] MEDS: Senna TAB 8.6 mg TAB PO SCH ×2 (08:55→22:25)
[2022-01-09] MEDS: Enoxaparin 40 MG/0.4 ML SYR SUBCUT SCH (08:56)
[2022-01-09] MEDS: CARBOXYMETHYLCELLULOSE LUBRICANT EYE BOTH EYES PRN (15:39)
[2022-01-09] MEDS: GLYCERI BOTH EYES PRN (15:39)
[2022-01-09] MEDS: Latanoprost 0.005% 2.5 ml BTL BOTH EYES SCH (22:29)
[2022-01-10 06:34] LABS: ABS Basophils 0.1 10^3/ul (0-0.2); ABS Eosinophils 0.6 10^3/ul (0-0.6); ABS Lymphocytes 4.3 10^3/ul (1.0-4.8); ABS Monocytes 0.6 10^3/ul (0-0.8); ABS Neutrophils 5.9 10^3/ul (1.5-7.7); Hematocrit 36 % (42-52); Hemoglobin 11.5 g/dL (14.0-18.0); Lymphocyte % 37.5 %; Mean Corpuscular HGB Conc 32 g/dL (31-36); Mean Corpuscular Hemoglobin 26 pg (27-31); Mean Corpuscular Volume 82 fL (80-94); Mean Platelet Volume 7.1 fL (7.4-10.4); Platelet Count 334 10^3/uL (150-450); Red Blood Count 4.41 10^6 /uL (4.18-5.48); Red Cell Distribution Width 16 % (10-15); White Blood Count 11.5 10^3/uL (3.5-10.8)
[2022-01-10 06:59] LABS: Albumin 3.4 g/dL (3.2-5.2); Albumin/Globulin Ratio 2.1 (1-3); Calcium 8.9 mg/dL (8.6-10.3); Globulin 1.6 g/dL (2-4); Total Bilirubin 0.4 mg/dL (0.2-1.0); eGFR CKD-EPI 113.3 (>60)
[2022-01-10] MEDS: Enoxaparin 40 MG/0.4 ML SYR SUBCUT SCH (09:53)
[2022-01-10] MEDS: Multivitamins/Minerals TAB PO SCH (09:54)
[2022-01-10] MEDS: Senna TAB 8.6 mg TAB PO SCH ×2 (09:55→21:57)
[2022-01-10] MEDS: Latanoprost 0.005% 2.5 ml BTL BOTH EYES SCH (21:56)
[2022-01-11] MEDS: Enoxaparin 40 MG/0.4 ML SYR SUBCUT SCH (09:12)
[2022-01-11] MEDS: Multivitamins/Minerals TAB PO SCH (09:14)
[2022-01-11] MEDS: Senna TAB 8.6 mg TAB PO SCH ×2 (09:17→21:57)
[2022-01-11] MEDS: Latanoprost 0.005% 2.5 ml BTL BOTH EYES SCH (21:56)
[2022-01-12] MEDS: GLYCERI BOTH EYES PRN (07:25)
[2022-01-12] MEDS: CARBOXYMETHYLCELLULOSE LUBRICANT EYE BOTH EYES PRN (07:25)
[2022-01-12] MEDS: Multivitamins/Minerals TAB PO SCH (07:41)
[2022-01-12] MEDS: Senna TAB 8.6 mg TAB PO SCH ×2 (07:42→21:58)
[2022-01-12] MEDS: Enoxaparin 40 MG/0.4 ML SYR SUBCUT SCH (07:43)
[2022-01-12] MEDS: Latanoprost 0.005% 2.5 ml BTL BOTH EYES SCH (21:56)
[2022-01-13] MEDS: Multivitamins/Minerals TAB PO SCH (09:20)
[2022-01-13] MEDS: Enoxaparin 40 MG/0.4 ML SYR SUBCUT SCH (09:21)
[2022-01-13] MEDS: Senna TAB 8.6 mg TAB PO SCH ×2 (09:25→21:17)
[2022-01-13] MEDS: Latanoprost 0.005% 2.5 ml BTL BOTH EYES SCH (21:15)
[2022-01-14 05:17] VITALS: BP 124/77
[2022-01-14] MEDS: Multivitamins/Minerals TAB PO SCH (09:16)
[2022-01-14] MEDS: Enoxaparin 40 MG/0.4 ML SYR SUBCUT SCH (09:16)
[2022-01-14] MEDS: Senna TAB 8.6 mg TAB PO SCH (09:17)
== END 2022-01-14 09:28 | disposition swing bed (61) | DRG 48 ==
LOC: PMRU 10:58
PROVIDERS: ADMIT Physical Medicine & Rehabilitation; ATTEND Physical Medicine & Rehabilitation

== ENCOUNTER 2022-01-14 10:29 | Inpatient (IN) ==
[2022-01-14] MEDS ORDERED: Al Hydrox/Mg Hydrox/Simet LIQ 30 ML UDC PO PRN (11:50)
[2022-01-14] MEDS ORDERED: Bacitracin OINTMENT TUBE TOPICAL PRN (11:50)
[2022-01-14] MEDS ORDERED: Polyethylene Glycol 3350 17 GM PACKET PO PRN (11:50)
[2022-01-14] MEDS ORDERED: Magnesium Hydroxide LIQ 30 ML UDC PO PRN (11:50)
[2022-01-14] MEDS ORDERED: Enoxaparin 40 MG/0.4 ML SYR SUBCUT SCH (12:00)
[2022-01-14] MEDS ORDERED: Dextran 70/Hypromellose Tears Eye Drops 15 ml BTL (for Artificials Tears) BOTH EYES PRN (16:11)
[2022-01-14] MEDS: Latanoprost 0.005% 2.5 ml BTL BOTH EYES SCH (22:30)
[2022-01-14] MEDS: Senna TAB 8.6 mg TAB PO SCH (22:30)
[2022-01-15] MEDS: REFRESH EYE BOTH EYES PRN (09:49)
[2022-01-15] MEDS: Senna TAB 8.6 mg TAB PO SCH ×2 (09:49→21:45)
[2022-01-15] MEDS: Enoxaparin 40 MG/0.4 ML SYR SUBCUT SCH (09:50)
[2022-01-15] MEDS: Multivitamins/Minerals TAB PO SCH (09:50)
[2022-01-15] MEDS: Latanoprost 0.005% 2.5 ml BTL BOTH EYES SCH (21:46)
[2022-01-16] MEDS: Multivitamins/Minerals TAB PO SCH (09:07)
[2022-01-16] MEDS: Senna TAB 8.6 mg TAB PO SCH ×2 (09:10→21:27)
[2022-01-16] MEDS: Enoxaparin 40 MG/0.4 ML SYR SUBCUT SCH (09:12)
[2022-01-16] MEDS: Latanoprost 0.005% 2.5 ml BTL BOTH EYES SCH (21:58)
[2022-01-17] MEDS: REFRESH EYE BOTH EYES PRN (08:45)
[2022-01-17] MEDS: Senna TAB 8.6 mg TAB PO SCH ×3 (10:43→21:57)
[2022-01-17] MEDS: Enoxaparin 40 MG/0.4 ML SYR SUBCUT SCH (10:43)
[2022-01-17] MEDS: Multivitamins/Minerals TAB PO SCH (10:43)
[2022-01-17] MEDS: Latanoprost 0.005% 2.5 ml BTL BOTH EYES SCH (22:07)
[2022-01-18] MEDS: Enoxaparin 40 MG/0.4 ML SYR SUBCUT SCH (08:27)
[2022-01-18] MEDS: Multivitamins/Minerals TAB PO SCH (08:27)
[2022-01-18] MEDS: Senna TAB 8.6 mg TAB PO SCH ×2 (08:29→22:29)
[2022-01-18] MEDS: Latanoprost 0.005% 2.5 ml BTL BOTH EYES SCH (20:56)
[2022-01-19] MEDS: Senna TAB 8.6 mg TAB PO SCH ×2 (09:24→21:01)
[2022-01-19] MEDS: Multivitamins/Minerals TAB PO SCH (09:24)
[2022-01-19] MEDS: Enoxaparin 40 MG/0.4 ML SYR SUBCUT SCH (09:25)
[2022-01-19] MEDS: REFRESH EYE BOTH EYES PRN (10:48)
[2022-01-19] MEDS: Latanoprost 0.005% 2.5 ml BTL BOTH EYES SCH (21:02)
[2022-01-20] MEDS: Multivitamins/Minerals TAB PO SCH (08:22)
[2022-01-20] MEDS: Enoxaparin 40 MG/0.4 ML SYR SUBCUT SCH (08:22)
[2022-01-20] MEDS: Senna TAB 8.6 mg TAB PO SCH ×2 (08:23→22:19)
[2022-01-20] MEDS: REFRESH EYE BOTH EYES PRN (12:04)
[2022-01-20] MEDS: Latanoprost 0.005% 2.5 ml BTL BOTH EYES SCH (22:18)
[2022-01-21 06:34] LABS: ABS Basophils 0.1 10^3/ul (0-0.2); ABS Eosinophils 0.4 10^3/ul (0-0.6); ABS Monocytes 0.7 10^3/ul (0-0.8); ABS Neutrophils 5.5 10^3/ul (1.5-7.7); Eosinophil % 4.2 %; Hematocrit 39 % (42-52); Hemoglobin 12.4 g/dL (14.0-18.0); Lymphocyte % 37.3 %; Mean Corpuscular HGB Conc 32 g/dL (31-36); Mean Corpuscular Hemoglobin 26 pg (27-31); Mean Corpuscular Volume 82 fL (80-94); Platelet Count 343 10^3/uL (150-450); Red Blood Count 4.76 10^6 /uL (4.18-5.48); Red Cell Distribution Width 17 % (10-15); White Blood Count 10.6 10^3/uL (3.5-10.8)
[2022-01-21 07:08] LABS: Calcium 9.1 mg/dL (8.6-10.3)
[2022-01-21] MEDS: Multivitamins/Minerals TAB PO SCH (08:54)
[2022-01-21] MEDS: Enoxaparin 40 MG/0.4 ML SYR SUBCUT SCH (08:56)
[2022-01-21] MEDS: Senna TAB 8.6 mg TAB PO SCH ×2 (08:57→21:01)
[2022-01-21] MEDS: Latanoprost 0.005% 2.5 ml BTL BOTH EYES SCH (21:00)
[2022-01-22] MEDS: Enoxaparin 40 MG/0.4 ML SYR SUBCUT SCH (08:51)
[2022-01-22] MEDS: Multivitamins/Minerals TAB PO SCH (08:52)
[2022-01-22] MEDS: Senna TAB 8.6 mg TAB PO SCH ×2 (08:53→22:46)
[2022-01-22] MEDS: Latanoprost 0.005% 2.5 ml BTL BOTH EYES SCH (22:48)
[2022-01-23] MEDS: Senna TAB 8.6 mg TAB PO SCH ×2 (09:04→22:00)
[2022-01-23] MEDS: Multivitamins/Minerals TAB PO SCH (10:14)
[2022-01-23] MEDS: Enoxaparin 40 MG/0.4 ML SYR SUBCUT SCH (10:14)
[2022-01-23] MEDS: Latanoprost 0.005% 2.5 ml BTL BOTH EYES SCH (22:01)
[2022-01-24] MEDS: Multivitamins/Minerals TAB PO SCH (08:55)
[2022-01-24] MEDS: Senna TAB 8.6 mg TAB PO SCH ×2 (08:56→20:38)
[2022-01-24] MEDS: Enoxaparin 40 MG/0.4 ML SYR SUBCUT SCH (08:57)
[2022-01-24] MEDS: REFRESH EYE BOTH EYES PRN (08:57)
[2022-01-24] MEDS: Latanoprost 0.005% 2.5 ml BTL BOTH EYES SCH (22:18)
[2022-01-25] MEDS: Senna TAB 8.6 mg TAB PO SCH ×2 (09:32→20:30)
[2022-01-25] MEDS: Multivitamins/Minerals TAB PO SCH (09:32)
[2022-01-25] MEDS: Enoxaparin 40 MG/0.4 ML SYR SUBCUT SCH (09:32)
[2022-01-25] MEDS: Latanoprost 0.005% 2.5 ml BTL BOTH EYES SCH (20:30)
[2022-01-26] MEDS: Senna TAB 8.6 mg TAB PO SCH ×2 (07:48→22:45)
[2022-01-26] MEDS: Multivitamins/Minerals TAB PO SCH (07:49)
[2022-01-26] MEDS: Enoxaparin 40 MG/0.4 ML SYR SUBCUT SCH (07:52)
[2022-01-26] MEDS: Latanoprost 0.005% 2.5 ml BTL BOTH EYES SCH (22:43)
[2022-01-27] MEDS: Enoxaparin 40 MG/0.4 ML SYR SUBCUT SCH (10:48)
[2022-01-27] MEDS: Multivitamins/Minerals TAB PO SCH (10:48)
[2022-01-27] MEDS: Senna TAB 8.6 mg TAB PO SCH ×2 (10:49→22:34)
[2022-01-27] MEDS: Latanoprost 0.005% 2.5 ml BTL BOTH EYES SCH (22:35)
[2022-01-28] MEDS: Enoxaparin 40 MG/0.4 ML SYR SUBCUT SCH (09:30)
[2022-01-28] MEDS: Multivitamins/Minerals TAB PO SCH (09:30)
[2022-01-28] MEDS: Senna TAB 8.6 mg TAB PO SCH ×2 (09:31→19:25)
[2022-01-28] MEDS: Latanoprost 0.005% 2.5 ml BTL BOTH EYES SCH (19:32)
[2022-01-29] MEDS: Senna TAB 8.6 mg TAB PO SCH ×2 (08:57→21:09)
[2022-01-29] MEDS: Multivitamins/Minerals TAB PO SCH (08:57)
[2022-01-29] MEDS: Enoxaparin 40 MG/0.4 ML SYR SUBCUT SCH (08:58)
[2022-01-29] MEDS: Latanoprost 0.005% 2.5 ml BTL BOTH EYES SCH (21:00)
[2022-01-30] MEDS: Enoxaparin 40 MG/0.4 ML SYR SUBCUT SCH (08:40)
[2022-01-30] MEDS: Multivitamins/Minerals TAB PO SCH (08:41)
[2022-01-30] MEDS: Senna TAB 8.6 mg TAB PO SCH ×2 (08:42→22:05)
[2022-01-30] MEDS: Latanoprost 0.005% 2.5 ml BTL BOTH EYES SCH (22:24)
[2022-01-31] MEDS: Multivitamins/Minerals TAB PO SCH (09:06)
[2022-01-31] MEDS: Senna TAB 8.6 mg TAB PO SCH ×2 (10:16→20:28)
[2022-01-31] MEDS: Enoxaparin 40 MG/0.4 ML SYR SUBCUT SCH (10:16)
[2022-01-31] MEDS: Latanoprost 0.005% 2.5 ml BTL BOTH EYES SCH (20:28)
[2022-02-01] MEDS: Multivitamins/Minerals TAB PO SCH (09:59)
[2022-02-01] MEDS: Senna TAB 8.6 mg TAB PO SCH ×2 (09:59→21:00)
[2022-02-01] MEDS: Enoxaparin 40 MG/0.4 ML SYR SUBCUT SCH (10:02)
[2022-02-01] MEDS: Latanoprost 0.005% 2.5 ml BTL BOTH EYES SCH (20:58)
[2022-02-02] MEDS: Enoxaparin 40 MG/0.4 ML SYR SUBCUT SCH (09:57)
[2022-02-02] MEDS: Multivitamins/Minerals TAB PO SCH (09:57)
[2022-02-02] MEDS: Senna TAB 8.6 mg TAB PO SCH ×2 (09:59→21:03)
[2022-02-02] MEDS: Latanoprost 0.005% 2.5 ml BTL BOTH EYES SCH (20:58)
[2022-02-03] MEDS: Enoxaparin 40 MG/0.4 ML SYR SUBCUT SCH (10:23)
[2022-02-03] MEDS: REFRESH EYE BOTH EYES PRN (10:24)
[2022-02-03] MEDS: Multivitamins/Minerals TAB PO SCH (10:24)
[2022-02-03] MEDS: Senna TAB 8.6 mg TAB PO SCH ×2 (12:42→20:53)
[2022-02-03] MEDS: Latanoprost 0.005% 2.5 ml BTL BOTH EYES SCH (20:52)
[2022-02-04] MEDS: Senna TAB 8.6 mg TAB PO SCH ×2 (10:38→21:00)
[2022-02-04] MEDS: Multivitamins/Minerals TAB PO SCH (10:39)
[2022-02-04] MEDS: Enoxaparin 40 MG/0.4 ML SYR SUBCUT SCH (10:41)
[2022-02-04] MEDS: REFRESH EYE BOTH EYES PRN (10:42)
[2022-02-04] MEDS ORDERED: COVID-19 VACCINE, MRNA(MODERNA) BOOSTER/PF 50 MCG/0.25 ML IM ONE (14:00)
[2022-02-04] MEDS: Latanoprost 0.005% 2.5 ml BTL BOTH EYES SCH (21:00)
[2022-02-05] MEDS: Senna TAB 8.6 mg TAB PO SCH ×2 (08:53→21:05)
[2022-02-05] MEDS: Multivitamins/Minerals TAB PO SCH (08:53)
[2022-02-05] MEDS: REFRESH EYE BOTH EYES PRN (08:54)
[2022-02-05] MEDS: Enoxaparin 40 MG/0.4 ML SYR SUBCUT SCH (08:55)
[2022-02-05] MEDS: Latanoprost 0.005% 2.5 ml BTL BOTH EYES SCH (20:45)
[2022-02-06] MEDS: Multivitamins/Minerals TAB PO SCH (09:56)
[2022-02-06] MEDS: Enoxaparin 40 MG/0.4 ML SYR SUBCUT SCH (09:57)
[2022-02-06] MEDS: Senna TAB 8.6 mg TAB PO SCH ×2 (09:58→20:59)
[2022-02-06] MEDS: REFRESH EYE BOTH EYES PRN (09:58)
[2022-02-06] MEDS: Latanoprost 0.005% 2.5 ml BTL BOTH EYES SCH (20:58)
[2022-02-07] MEDS: Enoxaparin 40 MG/0.4 ML SYR SUBCUT SCH (10:07)
[2022-02-07] MEDS: Multivitamins/Minerals TAB PO SCH (10:09)
[2022-02-07] MEDS: Senna TAB 8.6 mg TAB PO SCH ×2 (10:09→21:04)
[2022-02-07] MEDS: Latanoprost 0.005% 2.5 ml BTL BOTH EYES SCH (21:03)
[2022-02-08] MEDS: Multivitamins/Minerals TAB PO SCH (08:41)
[2022-02-08] MEDS: Enoxaparin 40 MG/0.4 ML SYR SUBCUT SCH (08:44)
[2022-02-08] MEDS: Senna TAB 8.6 mg TAB PO SCH ×2 (11:06→22:33)
[2022-02-08] MEDS: Latanoprost 0.005% 2.5 ml BTL BOTH EYES SCH (22:32)
[2022-02-09] MEDS: Senna TAB 8.6 mg TAB PO SCH ×2 (07:56→21:21)
[2022-02-09] MEDS: Enoxaparin 40 MG/0.4 ML SYR SUBCUT SCH (07:56)
[2022-02-09] MEDS: Multivitamins/Minerals TAB PO SCH (07:57)
[2022-02-09] MEDS: Latanoprost 0.005% 2.5 ml BTL BOTH EYES SCH (22:17)
[2022-02-10] MEDS: Enoxaparin 40 MG/0.4 ML SYR SUBCUT SCH (08:15)
[2022-02-10] MEDS: Multivitamins/Minerals TAB PO SCH (08:16)
[2022-02-10] MEDS: Senna TAB 8.6 mg TAB PO SCH ×2 (08:17→22:07)
[2022-02-10] MEDS: Latanoprost 0.005% 2.5 ml BTL BOTH EYES SCH (22:06)
[2022-02-11 07:54] VITALS: BP 129/55
[2022-02-11] MEDS: Enoxaparin 40 MG/0.4 ML SYR SUBCUT SCH (08:48)
[2022-02-11] MEDS: Multivitamins/Minerals TAB PO SCH (08:50)
[2022-02-11] MEDS: Senna TAB 8.6 mg TAB PO SCH (08:51)
== END 2022-02-11 12:05 | disposition home health service (06) | DRG 48 ==
LOC: EDSTATUS 15:27 → SUATTDRO 15:58 → MEDTELE 15:58 → MED 01-16 17:51
PROVIDERS: ADMIT Internal Medicine; ATTEND Hospitalist